=== PATIENT | female | born 1960 | race Caucasian/White ===

== ENCOUNTER → 2017-03-21 | Outpatient (CLI) | payer BC ==
--- NOTE | 2017-03-21 10:57 | RAD ---
DATE: 03/21/2017 EXAM: DIGITAL SCREEN BILAT W/CAD HISTORY: Routine screening COMPARISON: 10/28/2015 This study was interpreted with the benefit of Computerized Aided Detection (CAD). FINDINGS: Breast Density: HETERO The breast parenchyma Is heterogeneously dense, which could reduce sensitivity of mammography. Breast parenchyma level C. There are no dominant suspicious masses, suspicious microcalcifications or evidence of architectural distortion. Benign-appearing calcifications identified in the bilateral breasts. Nodules identified in the bilateral breast probably intramammary lymph nodes are similar to prior exam IMPRESSION: Benign findings BI-RADS CATEGORY: 2 BENIGN FINDING RECOMMENDED FOLLOW-UP: 12M 12 MONTH FOLLOW-UP PQRS compliance statement: Patient information was entered into a reminder system with a target due date 03/21/2018 for the next mammogram. Mammography is a sensitive method for finding small breast cancers, but it does not detect them all and is not a substitute for careful clinical examination. A negative mammogram does not negate a clinically suspicious finding and should not result in delay in biopsying a clinically suspicious abnormality. "Our facility is accredited by the [employer] Mammography [employer]."
== END | disposition home or self-care (01) ==
LOC: MAMMO 08:42
PROVIDERS: ATTEND Obstetrics & Gynecology
DX: Z12.31 Encounter for screening mammogram for malignant neoplasm of breast (principal)
CPT/HCPCS: G0202; 77067

== ENCOUNTER → 2018-05-23 | Outpatient (CLI) | payer BC | END | disposition home or self-care (01) | LOC: MAMMO 10:40 | DX: Z12.31 Encounter for screening mammogram for malignant neoplasm of breast (principal) | CPT/HCPCS: 77067 ==

== ENCOUNTER → 2019-07-30 | Outpatient (CLI) | payer BC ==
--- NOTE | 2019-07-31 15:44 | RAD ---
DATE: 07/30/2019 EXAM: DIGITAL SCREEN BILAT W/CAD HISTORY: Routine screening COMPARISON: 09/24/2014, 10/28/2015, 03/21/2017, 05/23/2018 mammographic exams This study was interpreted with the benefit of Computerized Aided Detection (CAD). Breast Density: SCATTERED The breast parenchyma shows scattered fibroglandular densities. Breast parenchyma level B. FINDINGS: Benign calcifications are present. No masses or distortion in the interval. IMPRESSION: Stable BI-RADS CATEGORY: 1 NEGATIVE RECOMMENDED FOLLOW-UP: 12M 12 MONTH FOLLOW-UP PQRS compliance statement: Patient information was entered into a reminder system with a target due date in one year for the next mammogram. Mammography is a sensitive method for finding small breast cancers, but it does not detect them all and is not a substitute for careful clinical examination. A negative mammogram does not negate a clinically suspicious finding and should not result in delay in biopsying a clinically suspicious abnormality. "Our facility is accredited by the [employer] Mammography [employer]."
== END | disposition home or self-care (01) ==
LOC: MAMMO 07:43
PROVIDERS: ATTEND Obstetrics & Gynecology
DX: Z12.31 Encounter for screening mammogram for malignant neoplasm of breast (principal); N64.89 Other specified disorders of breast
CPT/HCPCS: 77067

== ENCOUNTER 2020-12-05 14:09 | Inpatient (IN) | payer BC, OTHER ==
[~2020-12-05] VITALS: Ht 154.9 cm; Wt 122.5 kg
[2020-12-05] MEDS ORDERED: methylPREDNISolone SOD SUCC PF 125 MG/2 ML VIAL. IV ONE (15:00)
[2020-12-05 15:12] LABS: BASO % 0 % (0-3); EOS # 0.1 x10^3/uL (0.0-0.7); EOS % 1 % (0-3); HEMATOCRIT 40.4 % (36.0-47.0); HEMOGLOBIN 13.8 g/dL (12.0-15.5); LYMPH # 2.6 x10^3/uL (1.0-4.8); LYMPH % 26 % (24-48); MEAN CORPUSCULAR HEMOGLOBIN 31 pg (25-35); MEAN CORPUSCULAR HGB CONC 34 g/dL (31-37); MEAN CORPUSCULAR VOLUME 91 fL (79-100); MONO # 0.6 x10^3/uL (0.0-1.1); MONO % 6 % (0-9); NEUT # 6.7 x10^3/uL (1.8-7.7); NEUT % 67 % (31-73); PLATELET COUNT 184 x10^3/uL (140-400); RED BLOOD COUNT 4.46 x10^6/uL (3.50-5.40); RED CELL DISTRIBUTION WIDTH 13.6 % (11.5-14.5)
--- NOTE | 2020-12-05 15:19 | RAD ---
EXAM: Chest, single view. HISTORY: Shortness of air. COMPARISON: None. FINDINGS: A frontal view of the chest is obtained. There is no infiltrate, pleural effusion or pneumo thorax. The heart is normal in size. IMPRESSION: No acute pulmonary finding. Electronically signed by: Ronda Chaudhry MD (12/05/2020 3:16 PM) [facility]
--- NOTE | 2020-12-05 15:22 | PHYS DOC ---
Past Medical History Past Medical History: High Cholesterol, Hypertension Past Surgical History: Other Additional Past Surgical Histo: PARTIAL HYSTERECTOMY Smoking Status: Never Smoker Alcohol Use: None General Adult EDM: Chief Complaint: MULTIPLE COMPLAINTS HPI: HPI: Patient is a 60 year old female who presents with cough for last 2 weeks and went to her doctor and they put her on antibiotic and a steroid. She states that she has not gotten better and is only gotten worse. She states that shortness of air is gotten worse especially when she is up and moving. States she had a bout of diarrhea today. She states she did eat and drink today. She says she has had no diarrhea after eating and drinking today. Patient has a history of hypertension high cholesterol. Patient denies abdominal pain, nausea, vomiting, headache, dizziness, syncope, chest pain, fever, back pain, urinary symptoms, focal weakness, numbness or tingling. Upon arrival patient was only 89% on room air. She does not usually wear oxygen. She is placed on 2 L of oxygen she is 95%. Review of Systems: Review of Systems: Constitutional: Denies fever or chills. [] Eyes: Denies change in visual acuity. [] HENT: Denies nasal congestion or sore throat. [] Respiratory: +cough or +shortness of breath. [] Cardiovascular: Denies chest pain or edema. [] GI: Denies abdominal pain, nausea, vomiting, bloody stools. +diarrhea. [] : Denies dysuria. [] Musculoskeletal: Denies back pain or joint pain. [] Integument: Denies rash. [] Neurologic: Denies headache, focal weakness or sensory changes. [] Endocrine: Denies polyuria or polydipsia. [] Lymphatic: Denies swollen glands. [] Psychiatric: Denies depression or anxiety. [] Heart Score: Risk Factors: Risk Factors: DM, Current or recent (<one month) smoker, HTN, HLP, family history of CAD, obesity. Risk Scores: Score 0 - 3: 2.5% MACE over next 6 weeks - Discharge Home Score 4 - 6: 20.3% MACE over next 6 weeks - Admit for Clinical Observation Score 7 - 10: 72.7% MACE over next 6 weeks - Early Invasive Strategies Current Medications: Current Medications Medications (Trade) Dose Ordered Sig/Gurjit Start Time Stop Time Status Last Admin Dose Admin Methylprednisolone Sodium Succinate (SOLU-Medrol 125MG VIAL) 125 mg 1X ONCE 12/05/20 15:00 12/05/20 15:02 DC Allergies: Allergies: Allergies Coded Allergies Type Severity Reaction Last Updated Verified No Known Drug Allergies 12/05/20 No Physical Exam: PE: Constitutional: Well developed, well nourished, no acute distress, non-toxic appearance. [] HENT: Normocephalic, atraumatic, bilateral external ears normal, oropharynx moist, no oral exudates, nose normal. [] Eyes: PERRLA, EOMI, conjunctiva normal, no discharge. [] Neck: Normal range of motion, no tenderness, supple, no stridor. [] Cardiovascular:Heart rate regular rhythm, no murmur [] Lungs & Thorax: Bilateral upper breath sounds clear lower diminished to auscultation [] Abdomen: Bowel sounds normal, soft, no tenderness, no masses, no pulsatile masses. [] Skin: Warm, dry, no erythema, no rash. [] Back: No tenderness, no CVA tenderness. [] Extremities: No tenderness, no cyanosis, no clubbing, ROM intact, bilateral 2+ edema. [] Neurologic: Alert and oriented X 3, normal motor function, normal sensory function, no focal deficits noted. [] Psychologic: Affect normal, judgement normal, mood normal. [] Current Patient Data: Labs: Laboratory Tests Test 12/05/20 15:02 White Blood Count 10.0 x10^3/uL (4.0-11.0) Red Blood Count 4.46 x10^6/uL (3.50-5.40) Hemoglobin 13.8 g/dL (12.0-15.5) Hematocrit 40.4 % (36.0-47.0) Mean Corpuscular Volume 91 fL (79-100) Mean Corpuscular Hemoglobin 31 pg (25-35) Mean Corpuscular Hemoglobin Concent 34 g/dL (31-37) Red Cell Distribution Width 13.6 % (11.5-14.5) Platelet Count 184 x10^3/uL (140-400) Neutrophils (%) (Auto) 67 % (31-73) Lymphocytes (%) (Auto) 26 % (24-48) Monocytes (%) (Auto) 6 % (0-9) Eosinophils (%) (Auto) 1 % (0-3) Basophils (%) (Auto) 0 % (0-3) Neutrophils # (Auto) 6.7 x10^3/uL (1.8-7.7) Lymphocytes # (Auto) 2.6 x10^3/uL (1.0-4.8) Monocytes # (Auto) 0.6 x10^3/uL (0.0-1.1) Eosinophils # (Auto) 0.1 x10^3/uL (0.0-0.7) Basophils # (Auto) 0.0 x10^3/uL (0.0-0.2) Laboratory Tests 12/05/20 15:02 Vital Signs: Vital Signs Date Time Temp Pulse Resp B/P (MAP) Pulse Ox O2 Delivery O2 Flow Rate FiO2 12/05/20 14:42 98.0 96 20 154/77 (102) 95 Nasal Cannula 2.0 98.0 EKG: EK and read by Dr. Santoyo as sinus tachycardia and no STEMI. [] Radiology/Procedures: Radiology/Procedures: [] Impression: [address] [id number] IMAGING REPORT Signed PATIENT: VIKKI FRIAS SACCOUNT: [id number] : 1960 LOCATION: ER AGE: 60 SEX: F EXAM STATUS: REG ER ORD. PHYSICIAN: KALEY PICHARDO APRN REASON: SOA, LOW 02 PROCEDURE: PORTABLE CHEST 1V EXAM: Chest, single view. HISTORY: Shortness of air. COMPARISON: None. FINDINGS: A frontal view of the chest is obtained. There is no infiltrate, pleural effusion or pneumothorax. The heart is normal in size. IMPRESSION: No acute pulmonary finding. Electronically signed by: Ronda Alba MD (12/05/2020 3:16 PM) [facility] DICTATED and SIGNED BY: RONDA ALBA MD DATE: 12/05/20 [id number] [id number] IMAGING REPORT Signed PATIENT: VIKKI FRIAS SACCOUNT: [id number] : 1960 LOCATION: ER AGE: 60 SEX: F EXAM STATUS: REG ER ORD. PHYSICIAN: KALEY PICHARDO APRN REASON: SOA, TACHYCARDIA PROCEDURE: CT ANGIOGRAPHY CHEST EXAM: CT angiography of the chest with intravenous contrast. HISTORY: Tachycardia. Shortness of breath. TECHNIQUE: Computed tomographic images of the chest were obtained following the administration of intravenous contrast according to angiography protocol. Multiplanar reformatting was performed and three dimensional maximum intensity projection images were obtained. *One or more of the following individualized dose reduction techniques were utilized for this examination: 1. Automated exposure control. 2. Adjustment of the mA and/or kV according to patient size. 3. Use of iterative reconstruction technique. COMPARISON: None. FINDINGS: There are bilateral upper and and lower lobe and right middle lobe pulmonary emboli with involvement of the lateral main pulmonary arteries. No saddle embolus is seen. There is suggestion of deviation of the anterior ventricular septum, a finding which can be seen with right heart strain. The aorta is normal in caliber and demonstrates a standard aortic arch branching pattern. There is no lymphadenopathy. There is no pleural effusion or pneumothorax. There is nonspecific right perihilar groundglass opacity likely due to atelectasis. There is additional right infrahilar and posterior dependent atelectasis. There is mild stranding surrounding adrenal glands, not within limits to suggest infarction. No adrenal nodule is seen. There are right renal cysts, partially included on the [id number].. Is not routinely recommended for simple renal cysts. There are degenerative changes involving the spine. There is no acute or suspicious osseous finding. IMPRESSION: 1. Extensive bilateral pulmonary emboli with involvement of the main pulmonary arteries. There may be a component of superimposed right heart strain. No saddle embolus is seen. 2. Nonspecific right perihilar groundglass opacity which is likely due to atelectasis. No consolidated infiltrate is seen. Findings were discussed with Kaley in the ED at the 1726 hours on 11/08/2020. FOR INTERNAL CODING PURPOSES RESULT CODE: (C) Electronically signed by: Ronda Alba MD (12/05/2020 5:26 PM) [facility] DICTATED and SIGNED BY: RONDA ALBA MD DATE: 12/05/20 [id number] Course & Med Decision Making: Course & Med Decision Making Pertinent Labs and Imaging studies reviewed. (See chart for details) COVID-19 CRITERIA: The patient was evaluated during the global COVID-19 pandemic, and that diagnosis was suspected/considered upon their initial presentation. Their evaluation, treatment and testing was consistent with current guidelines for patients who present with complaints or symptoms that may be related to COVID-19. See HPI. Alert and oriented x4. Ambulatory with a steady gait. Skin pink warm and dry. She has 2+ peripheral edema bilaterally of which she states is normal for her. Lungs are clear in upper lobes and diminished in lower lobes. Speaks in full complete sentences. IMPRESSION: 1. Extensive bilateral pulmonary emboli with involvement of the main pulmonary arteries. There may be a component of superimposed right heart strain. No saddle embolus is seen. 2. Nonspecific right perihilar groundglass opacity which is likely due to atelectasis. No consolidated infiltrate is seen. Patient is started on heparin bolus and heparin drip. I have ordered a PT/INR. Patient is admitted to hospitalist. [] Karla Disclaimer: Karla Disclaimer: This electronic medical record was generated, in whole or in part, using a voice recognition dictation system. COVID-19 Patient Risks: Age 65 or older: No Sign of co-morbidity: Yes Exp to person + for COVID: No Exp to PUI: No Travel from affected area: No Lower respiratory symptoms: Yes Fever: No Other: No PPE Use: Full PPE with N95 mask or PAPR: Yes Departure Departure Impression: Primary Impression: Pulmonary embolism Qualified Codes: I26.99 - Other pulmonary embolism without acute cor pulmonale Additional Impressions: Person under investigation for COVID-19 Hypoxia Disposition: 09 ADMITTED INPT THIS HOSP Admitting Physician: LIZ Condition: STABLE Referrals: NOAH ANDREA MD (PCP) KALEY PICHARDO APRN Dec 05, 2020 15:22
[2020-12-05 15:37] LABS: CREATININE 0.8 mg/dL (0.6-1.0); GFR 72.9; POTASSIUM 3.6 mmol/L (3.5-5.1)
[2020-12-05 15:43] LABS: ALBUMIN 3.1 g/dL (3.4-5.0); ALBUMIN/GLOBULIN RATIO 0.8 (1.0-1.7); TOTAL BILIRUBIN 1.1 mg/dL (0.2-1.0); TOTAL PROTEIN 7.1 g/dL (6.4-8.2)
[2020-12-05 15:50] LABS: BASE EXCESS COOX -3 mmol/L (-3-3); HCO3 COOX 20 mmol/L (21-28); METHEMOGLOBIN 0.3 % (0.0-1.9); OXYHEMOGLOBIN 90.6 %; PCO2 COOX 30 mmHg (35-46); PO2 COOX 59 mmHg (65-108); SAT O2 COOX 91 % (92-99)
[2020-12-05 16:18] LABS: INFLUENZA A PATIENT NEGATIVE (NEGATIVE); INFLUENZA B PATIENT NEGATIVE (NEGATIVE)
[2020-12-05] MEDS ORDERED: IOHEXOL 350 MG/ML 100 ML VIAL. IV ONE (16:30)
[2020-12-05] MEDS ORDERED: CONTRAST GIVEN. MC PRN (16:45)
--- NOTE | 2020-12-05 17:31 | RAD ---
EXAM: CT angiography of the chest with intravenous contrast. HISTORY: Tachycardia. Shortness of breath. TECHNIQUE: Computed tomographic images of the chest were obtained following the administration of int ravenous contrast according to angiography protocol. Multiplanar reformatting was performed and three dimensional maximum intensity projection images were obtained. *One or more of the following individualized dose reduction techniques were utilized for this examina tion: 1. Automated exposure control. 2. Adjustment of the mA and/or kV according to patient size. 3. Use of iterative reconstruction technique. COMPARISON: None. FINDINGS: There are bilateral upper and and lower lobe and right middle lobe pulmonary emboli with in volvement of the lateral main pulmonary arteries. No saddle embolus is seen. There is suggestion of d eviation of the anterior ventricular septum, a finding which can be seen with right heart strain. The aorta is normal in caliber and demonstrates a standard aortic arch branching pattern. There is no ly mphadenopathy. There is no pleural effusion or pneumothorax. There is nonspecific right perihilar claire undglass opacity likely due to atelectasis. There is additional right infrahilar and posterior depend ent atelectasis. There is mild stranding surrounding adrenal glands, not within limits to suggest inf arction. No adrenal nodule is seen. There are right renal cysts, partially included on the field-of-v iew.. Is not routinely recommended for simple renal cysts. There are degenerative changes involving t he spine. There is no acute or suspicious osseous finding. IMPRESSION: 1. Extensive bilateral pulmonary emboli with involvement of the main pulmonary arteries. There may be a component of superimposed right heart strain. No saddle embolus is seen. 2. Nonspecific right perihilar groundglass opacity which is likely due to atelectasis. No consolidate d infiltrate is seen. Findings were discussed with Kaley in the ED at the 1726 hours on 11/08/2020. FOR INTERNAL CODING PURPOSES RESULT CODE: (C) Electronically signed by: Ronda Chaudhry MD (12/05/2020 5:26 PM) [facility]
[2020-12-05] MEDS ORDERED: AZITHRMYCN 500MG IVPB FOR OMNI 250 ML IV ONE (18:00)
[2020-12-05] MEDS ORDERED: HEPARIN for IV BOLUS 10,000 UNIT/10 ML VIAL. IV ONE (18:00)
[2020-12-05] MEDS ORDERED: ONDANSETRON PF 4 MG/2 ML VIAL. IV PRN (18:15)
[2020-12-05] MEDS ORDERED: ACETAMINOPHEN 325 MG TABLET. PO PRN (18:15)
[2020-12-05 18:24] LABS: PROTHROMBIN TIME PATIENT 13.9 SEC (11.7-14.0)
[2020-12-05] MEDS: HEPARIN 25,000UTS/250ML PREMIX 250 ML IV PRN (19:24)
[2020-12-05 19:26] LABS: BILIRUBIN,URINE NEGATIVE (NEG); CLARITY,URINE CLEAR; COLOR,URINE YELLOW; NITRITE,URINE NEGATIVE (NEG); PH,URINE 5.5 (<5.0-8.0); PROTEIN,URINE 30 mg/dL (NEG-TRACE); UROBILINOGEN,URINE 0.2 mg/dL (0.2 mg/dL)
--- NOTE | 2020-12-05 19:39 | HP ---
ADMIT DATE: 12/05/2020 CHIEF COMPLAINT: Shortness of breath, cough and loose stools. HISTORY OF PRESENT ILLNESS: The patient is a pleasant middle-aged female who presented today with the above chief complaints. We did some imaging here in the ER. It appears she has bilateral pulmonary emboli. We are concerned she possibly could have COVID as well. I discussed the case with the ER physician. We are going to admit the patient and anticoagulate her and consult Pulmonary Medicine. PAST MEDICAL HISTORY: Hypertension, hyperlipidemia, partial hysterectomy. ALLERGIES: None. FAMILY HISTORY: Diabetes. SOCIAL HISTORY: She does not drink, smoke or take drugs. MEDICATIONS: Reviewed, please refer to the MRAD. REVIEW OF SYSTEMS: GENERAL: No history of weight change, weakness or fevers. SKIN: No bruising, hair changes or rashes. EYES: No blurred, double or loss of vision. NOSE AND THROAT: No history of nosebleeds, hoarseness or sore throat. HEART: No history of palpitations, chest pain or shortness of breath on exertion. LUNGS: She complains of shortness of breath and cough. GASTROINTESTINAL: Denies changes in appetite, nausea, vomiting, diarrhea or constipation. GENITOURINARY: No history of frequency, urgency, hesitancy or nocturia. NEUROLOGIC: Denies history of numbness, tingling, tremor or weakness. PSYCHIATRIC: No history of panic, anxiety or depression. ENDOCRINE: No history of heat or cold intolerance, polyuria or polydipsia. EXTREMITIES: Denies muscle weakness, joint pain, pain on walking or stiffness. PHYSICAL EXAMINATION: VITALS: Within normal limits and are stable. GENERAL: No apparent distress. Alert and oriented. HEENT: Normal cephalic atraumatic, external auditory canals are patent. EYES: Extraocular muscles are intact, pupils are equally round and reactive to light and accommodation. MUSCULOSKELETAL: Well developed, well nourished, good range of motion. ENDOCRINE: No thyromegaly was palpated. LYMPHATICS: No cervical chain or axillary nodes were noted. HEMATOPOIETIC: No bruising. NECK: Supple, no JVD, no thyromegaly was noted. LUNGS: Clear to auscultation in all lung cuevas without rhonchi or wheezing. HEART: RRR, S1, S2 present. Peripheral pulses intact, no obvious murmurs were noted. ABDOMEN: Soft, nontender. Positive bowel sounds no organomegaly, normal bowel sounds. EXTREMITIES: Without any cyanosis, clubbing, or edema. Pedal pulses intact, Homans sign is negative. NEUROLOGIC: Normal speech, normal tone. A & O x 3, moves all extremities, no obvious focal deficits. PSYCHIATRIC: Normal affect, normal mood. Stable. SKIN: No ulcerations or rashes, good skin turgor, no jaundice. VASCULAR: Good capillary refill, neurovascular bundle appears to be intact. LABORATORY DATA: White count 10. Electrolytes are normal other than a BUN of 27 and a glucose of 171. ABG: pH 7.44, pCO2 of 30, pO2 of 59, bicarbonate 20 with 91% sat, that was on 2 liters nasal cannula. Influenza testing is negative. D-dimer is high at 2.34. ASSESSMENT AND PLAN: Bilateral pulmonary emboli. The patient has been admitted. We will start anticoagulation. Consult Pulmonary Medicine. Heparin drip. Home meds, DVT prophylaxis. Full code. Rule out COVID-19. She did get a dose of azithromycin and Solu-Medrol in the ER. CC TIME: 32 minutes. AMANDEEP CARREON DO DR: LUPIS/dg JOB#: [id number] / [id number]
[2020-12-05 19:43] LABS: RBC,URINE 0 /HPF (0-2)
[2020-12-05 19:44] LABS: BACTERIA,URINE FEW /HPF (0-FEW)
[2020-12-05 20:47] VITALS: BP 143/85
[2020-12-05] MEDS ORDERED: LISI10TA16 PO (20:51)
[2020-12-05] MEDS ORDERED: ATOR20TA58 PO (20:51)
[2020-12-05] MEDS: ATORVASTATIN CALCIUM 20 MG TABLET PO SCH (22:01)
[2020-12-05] MEDS: LISINOPRIL 10 MG TABLET PO SCH (22:01)
[2020-12-05 23:19] VITALS: BP 184/96
[2020-12-06 03:10] VITALS: BP 144/79
--- NOTE | 2020-12-06 04:04 | EKG ---
[facility] [address] [place] [address] Test Date: 2020-12-05 Test Time: 14:29:13 Pat Name: VIKKI FRIAS Department: Room: [facility] Gender: F [employer] Supervisor: : 1960 Requested By: JASIEL PICHARDO Order Number: [id number] Reading MD: Toro Medellin Measurements Intervals [place] Rate: 101 P: 82 CA: 142 QRS: 29 QRSD: 86 T: 47 QT: 324 QTc: 426 Interpretive Statements SINUS TACHYCARDIA Electronically Signed On 12-15-2020 14:42:33 EXTERMINATOR HELPER by Toro Medellin
[2020-12-06] MEDS: HEPARIN 25,000UTS/250ML PREMIX 250 ML IV PRN (06:25)
--- NOTE | 2020-12-06 06:32 | NUR ---
Timed UFH ordered for 3am was drawn at 3:45. I called lab an hour later after no result. they said it waqs in process. At 0600 lab called stating that the tube was not full so the result is not accurate. They will re-draw now.
[2020-12-06 07:00] VITALS: BP 157/86
--- NOTE | 2020-12-06 10:44 | PDOC ---
PROGRESS NOTES Date of Service: DATE: 12/06/20 TIME: 10:44 Chief Complaint Chief Complaint ASSESSMENT AND PLAN: Bilateral pulmonary emboli. MORBID OBESITY PLAN admitted. start anticoagulation. Consult Pulmonary Medicine. Heparin drip. PROTOCOL Home meds, DVT prophylaxis. Full code. Rule out COVID-19. azithromycin and Solu-Medrol in the ER. Continue current IV heparin, switch to oral Eliquis in the a.m. Possibly discharge home tomorrow afternoon. d/w rn History of Present Illness History of Present Illness CHIEF COMPLAINT: Shortness of breath, cough and loose stools. HISTORY OF PRESENT ILLNESS: The patient is a pleasant middle-aged female who presented today with the above chief complaints. We did some imaging here in the ER. It appears she has bilateral pulmonary emboli. We are concerned she possibly could have COVID as well. I discussed the case with the ER physician. We are going to admit the patient and anticoagulate her and consult Pulmonary Medicine. PAST MEDICAL HISTORY: Hypertension, hyperlipidemia, partial hysterectomy. ALLERGIES: None. FAMILY HISTORY: Diabetes. SOCIAL HISTORY: She does not drink, smoke or take drugs. MEDICATIONS: Reviewed, please refer to the MRAD. REVIEW OF SYSTEMS: GENERAL: No history of weight change, weakness or fevers. SKIN: No bruising, hair changes or rashes. EYES: No blurred, double or loss of vision. NOSE AND THROAT: No history of nosebleeds, hoarseness or sore throat. HEART: No history of palpitations, chest pain or shortness of breath on exertion. LUNGS: She complains of shortness of breath and cough. GASTROINTESTINAL: Denies changes in appetite, nausea, vomiting, diarrhea or constipation. GENITOURINARY: No history of frequency, urgency, hesitancy or nocturia. NEUROLOGIC: Denies history of numbness, tingling, tremor or weakness. PSYCHIATRIC: No history of panic, anxiety or depression. ENDOCRINE: No history of heat or cold intolerance, polyuria or polydipsia. EXTREMITIES: Denies muscle weakness, joint pain, pain on walking or stiffness. Vitals Vitals Vital Signs Date Time Temp Pulse Resp B/P (MAP) Pulse Ox O2 Delivery O2 Flow Rate FiO2 12/06/20 07:54 Nasal Cannula 3.0 12/06/20 07:00 97.0 80 24 157/86 (109) 90 97.0 Physical Exam Physical Exam VITALS: Within normal limits and are stable. GENERAL: No apparent distress. Alert and oriented. HEENT: Normal cephalic atraumatic, external auditory canals are patent. EYES: Extraocular muscles are intact, pupils are equally round and reactive to light and accommodation. MUSCULOSKELETAL: Well developed, well nourished, good range of motion. ENDOCRINE: No thyromegaly was palpated. LYMPHATICS: No cervical chain or axillary nodes were noted. HEMATOPOIETIC: No bruising. NECK: Supple, no JVD, no thyromegaly was noted. LUNGS: Clear to auscultation in all lung cuevas without rhonchi or wheezing. HEART: RRR, S1, S2 present. Peripheral pulses intact, no obvious murmurs were noted. ABDOMEN: Soft, nontender. Positive bowel sounds no organomegaly, normal bowel sounds. EXTREMITIES: Without any cyanosis, clubbing, or edema. Pedal pulses intact, Homans sign is negative. NEUROLOGIC: Normal speech, normal tone. A & O x 3, moves all extremities, no obvious focal deficits. PSYCHIATRIC: Normal affect, normal mood. Stable. SKIN: No ulcerations or rashes, good skin turgor, no jaundice. VASCULAR: Good capillary refill, neurovascular bundle appears to be intact. General: Alert, Cooperative, No acute distress Labs LABS Laboratory Tests Test 12/05/20 15:02 12/05/20 15:51 12/05/20 15:55 12/05/20 19:19 White Blood Count 10.0 x10^3/uL (4.0-11.0) Red Blood Count 4.46 x10^6/uL (3.50-5.40) Hemoglobin 13.8 g/dL (12.0-15.5) Hematocrit 40.4 % (36.0-47.0) Mean Corpuscular Volume 91 fL (79-100) Mean Corpuscular Hemoglobin 31 pg (25-35) Mean Corpuscular Hemoglobin Concent 34 g/dL (31-37) Red Cell Distribution Width 13.6 % (11.5-14.5) Platelet Count 184 x10^3/uL (140-400) Neutrophils (%) (Auto) 67 % (31-73) Lymphocytes (%) (Auto) 26 % (24-48) Monocytes (%) (Auto) 6 % (0-9) Eosinophils (%) (Auto) 1 % (0-3) Basophils (%) (Auto) 0 % (0-3) Neutrophils # (Auto) 6.7 x10^3/uL (1.8-7.7) Lymphocytes # (Auto) 2.6 x10^3/uL (1.0-4.8) Monocytes # (Auto) 0.6 x10^3/uL (0.0-1.1) Eosinophils # (Auto) 0.1 x10^3/uL (0.0-0.7) Basophils # (Auto) 0.0 x10^3/uL (0.0-0.2) Prothrombin Time 13.9 SEC (11.7-14.0) Prothromb Time International Ratio 1.1 (0.8-1.1) D-Dimer (Roseline) 2.34 ug/mlFEU (0.00-0.50) Sodium Level 142 mmol/L (136-145) Potassium Level 3.6 mmol/L (3.5-5.1) Chloride Level 107 mmol/L (98-107) Carbon Dioxide Level 21 mmol/L (21-32) Anion Gap 14 (6-14) Blood Urea Nitrogen 27 mg/dL (7-20) Creatinine 0.8 mg/dL (0.6-1.0) Estimated GFR (Cockcroft-Gault) 72.9 BUN/Creatinine Ratio 34 (6-20) Glucose Level 171 mg/dL (70-99) Calcium Level 9.0 mg/dL (8.5-10.1) Total Bilirubin 1.1 mg/dL (0.2-1.0) Aspartate Amino Transf (AST/SGOT) 41 U/L (15-37) Alanine Aminotransferase (ALT/SGPT) 70 U/L (14-59) Alkaline Phosphatase 118 U/L (46-116) Troponin I Quantitative 0.025 ng/mL (0.000-0.055) KM-Fvc-J-Type Natriuretic Peptide 2897 pg/mL (0-124) Total Protein 7.1 g/dL (6.4-8.2) Albumin 3.1 g/dL (3.4-5.0) Albumin/Globulin Ratio 0.8 (1.0-1.7) Lipase 132 U/L (73-393) O2 Saturation 91 % (92-99) Arterial Blood pH 7.44 (7.35-7.45) Arterial Blood pCO2 at Patient Temp 30 mmHg (35-46) Arterial Blood pO2 at Patient Temp 59 mmHg (65-108) Arterial Blood HCO3 20 mmol/L (21-28) Arterial Blood Base Excess -3 mmol/L (-3-3) Oxyhemoglobin 90.6 % Methemoglobin 0.3 % (0.0-1.9) Carbon Monoxide, Quantitative 0.3 % (0.0-1.9) FiO2 28/ 2l nc Influenza Type A Antigen Negative (NEGATIVE) Influenza Type B Antigen Negative (NEGATIVE) Urine Collection Type Unknown Urine Color Yellow Urine Clarity Clear Urine pH 5.5 (<5.0-8.0) Urine Specific [place] >=1.030 (1.000-1.030) Urine Protein 30 mg/dL (NEG-TRACE) Urine Glucose (UA) Negative mg/dL (NEG) Urine Ketones (Stick) Trace mg/dL (NEG) Urine Blood Trace (NEG) Urine Nitrite Negative (NEG) Urine Bilirubin Negative (NEG) Urine Urobilinogen Dipstick 0.2 mg/dL (0.2 mg/dL) Urine Leukocyte Esterase Trace (NEG) Urine RBC 0 /HPF (0-2) Urine WBC 5-10 /HPF (0-4) Urine Squamous Epithelial Cells Mod /LPF Urine Bacteria Few /HPF (0-FEW) Urine Mucus Slight /LPF Assessment and Plan Assessmemt and Plan Problems Medical Problems: (1) Hypoxia Status: Acute (2) Person under investigation for COVID-19 Status: Acute (3) Pulmonary embolism Status: Acute Comment Review of Relevant I have reviewed the following items melodie (where applicable) has been applied. Labs Laboratory Tests Test 12/05/20 15:02 12/05/20 15:51 12/05/20 15:55 12/05/20 19:19 White Blood Count 10.0 x10^3/uL (4.0-11.0) Red Blood Count 4.46 x10^6/uL (3.50-5.40) Hemoglobin 13.8 g/dL (12.0-15.5) Hematocrit 40.4 % (36.0-47.0) Mean Corpuscular Volume 91 fL (79-100) Mean Corpuscular Hemoglobin 31 pg (25-35) Mean Corpuscular Hemoglobin Concent 34 g/dL (31-37) Red Cell Distribution Width 13.6 % (11.5-14.5) Platelet Count 184 x10^3/uL (140-400) Neutrophils (%) (Auto) 67 % (31-73) Lymphocytes (%) (Auto) 26 % (24-48) Monocytes (%) (Auto) 6 % (0-9) Eosinophils (%) (Auto) 1 % (0-3) Basophils (%) (Auto) 0 % (0-3) Neutrophils # (Auto) 6.7 x10^3/uL (1.8-7.7) Lymphocytes # (Auto) 2.6 x10^3/uL (1.0-4.8) Monocytes # (Auto) 0.6 x10^3/uL (0.0-1.1) Eosinophils # (Auto) 0.1 x10^3/uL (0.0-0.7) Basophils # (Auto) 0.0 x10^3/uL (0.0-0.2) Prothrombin Time 13.9 SEC (11.7-14.0) Prothromb Time International Ratio 1.1 (0.8-1.1) D-Dimer (Roseline) 2.34 ug/mlFEU (0.00-0.50) Sodium Level 142 mmol/L (136-145) Potassium Level 3.6 mmol/L (3.5-5.1) Chloride Level 107 mmol/L (98-107) Carbon Dioxide Level 21 mmol/L (21-32) Anion Gap 14 (6-14) Blood Urea Nitrogen 27 mg/dL (7-20) Creatinine 0.8 mg/dL (0.6-1.0) Estimated GFR (Cockcroft-Gault) 72.9 BUN/Creatinine Ratio 34 (6-20) Glucose Level 171 mg/dL (70-99) Calcium Level 9.0 mg/dL (8.5-10.1) Total Bilirubin 1.1 mg/dL (0.2-1.0) Aspartate Amino Transf (AST/SGOT) 41 U/L (15-37) Alanine Aminotransferase (ALT/SGPT) 70 U/L (14-59) Alkaline Phosphatase 118 U/L (46-116) Troponin I Quantitative 0.025 ng/mL (0.000-0.055) YU-Ssg-H-Type Natriuretic Peptide 2897 pg/mL (0-124) Total Protein 7.1 g/dL (6.4-8.2) Albumin 3.1 g/dL (3.4-5.0) Albumin/Globulin Ratio 0.8 (1.0-1.7) Lipase 132 U/L (73-393) O2 Saturation 91 % (92-99) Arterial Blood pH 7.44 (7.35-7.45) Arterial Blood pCO2 at Patient Temp 30 mmHg (35-46) Arterial Blood pO2 at Patient Temp 59 mmHg (65-108) Arterial Blood HCO3 20 mmol/L (21-28) Arterial Blood Base Excess -3 mmol/L (-3-3) Oxyhemoglobin 90.6 % Methemoglobin 0.3 % (0.0-1.9) Carbon Monoxide, Quantitative 0.3 % (0.0-1.9) FiO2 28/ 2l nc Influenza Type A Antigen Negative (NEGATIVE) Influenza Type B Antigen Negative (NEGATIVE) Urine Collection Type Unknown Urine Color Yellow Urine Clarity Clear Urine pH 5.5 (<5.0-8.0) Urine Specific [place] >=1.030 (1.000-1.030) Urine Protein 30 mg/dL (NEG-TRACE) Urine Glucose (UA) Negative mg/dL (NEG) Urine Ketones (Stick) Trace mg/dL (NEG) Urine Blood Trace (NEG) Urine Nitrite Negative (NEG) Urine Bilirubin Negative (NEG) Urine Urobilinogen Dipstick 0.2 mg/dL (0.2 mg/dL) Urine Leukocyte Esterase Trace (NEG) Urine RBC 0 /HPF (0-2) Urine WBC 5-10 /HPF (0-4) Urine Squamous Epithelial Cells Mod /LPF Urine Bacteria Few /HPF (0-FEW) Urine Mucus Slight /LPF Laboratory Tests Test 12/05/20 15:02 12/05/20 15:51 12/05/20 15:55 12/05/20 19:19 White Blood Count 10.0 x10^3/uL (4.0-11.0) Red Blood Count 4.46 x10^6/uL (3.50-5.40) Hemoglobin 13.8 g/dL (12.0-15.5) Hematocrit 40.4 % (36.0-47.0) Mean Corpuscular Volume 91 fL (79-100) Mean Corpuscular Hemoglobin 31 pg (25-35) Mean Corpuscular Hemoglobin Concent 34 g/dL (31-37) Red Cell Distribution Width 13.6 % (11.5-14.5) Platelet Count 184 x10^3/uL (140-400) Neutrophils (%) (Auto) 67 % (31-73) Lymphocytes (%) (Auto) 26 % (24-48) Monocytes (%) (Auto) 6 % (0-9) Eosinophils (%) (Auto) 1 % (0-3) Basophils (%) (Auto) 0 % (0-3) Neutrophils # (Auto) 6.7 x10^3/uL (1.8-7.7) Lymphocytes # (Auto) 2.6 x10^3/uL (1.0-4.8) Monocytes # (Auto) 0.6 x10^3/uL (0.0-1.1) Eosinophils # (Auto) 0.1 x10^3/uL (0.0-0.7) Basophils # (Auto) 0.0 x10^3/uL (0.0-0.2) Prothrombin Time 13.9 SEC (11.7-14.0) Prothromb Time International Ratio 1.1 (0.8-1.1) D-Dimer (Roseline) 2.34 ug/mlFEU (0.00-0.50) Sodium Level 142 mmol/L (136-145) Potassium Level 3.6 mmol/L (3.5-5.1) Chloride Level 107 mmol/L (98-107) Carbon Dioxide Level 21 mmol/L (21-32) Anion Gap 14 (6-14) Blood Urea Nitrogen 27 mg/dL (7-20) Creatinine 0.8 mg/dL (0.6-1.0) Estimated GFR (Cockcroft-Gault) 72.9 BUN/Creatinine Ratio 34 (6-20) Glucose Level 171 mg/dL (70-99) Calcium Level 9.0 mg/dL (8.5-10.1) Total Bilirubin 1.1 mg/dL (0.2-1.0) Aspartate Amino Transf (AST/SGOT) 41 U/L (15-37) Alanine Aminotransferase (ALT/SGPT) 70 U/L (14-59) Alkaline Phosphatase 118 U/L (46-116) Troponin I Quantitative 0.025 ng/mL (0.000-0.055) CG-Tai-X-Type Natriuretic Peptide 2897 pg/mL (0-124) Total Protein 7.1 g/dL (6.4-8.2) Albumin 3.1 g/dL (3.4-5.0) Albumin/Globulin Ratio 0.8 (1.0-1.7) Lipase 132 U/L (73-393) O2 Saturation 91 % (92-99) Arterial Blood pH 7.44 (7.35-7.45) Arterial Blood pCO2 at Patient Temp 30 mmHg (35-46) Arterial Blood pO2 at Patient Temp 59 mmHg (65-108) Arterial Blood HCO3 20 mmol/L (21-28) Arterial Blood Base Excess -3 mmol/L (-3-3) Oxyhemoglobin 90.6 % Methemoglobin 0.3 % (0.0-1.9) Carbon Monoxide, Quantitative 0.3 % (0.0-1.9) FiO2 28/ 2l nc Influenza Type A Antigen Negative (NEGATIVE) Influenza Type B Antigen Negative (NEGATIVE) Urine Collection Type Unknown Urine Color Yellow Urine Clarity Clear Urine pH 5.5 (<5.0-8.0) Urine Specific [place] >=1.030 (1.000-1.030) Urine Protein 30 mg/dL (NEG-TRACE) Urine Glucose (UA) Negative mg/dL (NEG) Urine Ketones (Stick) Trace mg/dL (NEG) Urine Blood Trace (NEG) Urine Nitrite Negative (NEG) Urine Bilirubin Negative (NEG) Urine Urobilinogen Dipstick 0.2 mg/dL (0.2 mg/dL) Urine Leukocyte Esterase Trace (NEG) Urine RBC 0 /HPF (0-2) Urine WBC 5-10 /HPF (0-4) Urine Squamous Epithelial Cells Mod /LPF Urine Bacteria Few /HPF (0-FEW) Urine Mucus Slight /LPF Medications Current Medications Methylprednisolone Sodium Succinate (SOLU-Medrol 125MG VIAL) 125 mg 1X ONCE IV Last administered on 12/05/20at 15:53; Start 12/05/20 at 15:00; Stop 12/05/20 at 15:02; Status DC Iohexol (Omnipaque 350 Mg/ml) 100 ml 1X ONCE IV Last administered on 12/05/20at 16:59; Start 12/05/20 at 16:30; Stop 12/05/20 at 16:31; Status DC Info (CONTRAST GIVEN -- Rx MONITORING) 1 each PRN DAILY PRN MC SEE COMMENTS; Start 12/05/20 at 16:45; Stop 12/07/20 at 16:44 Azithromycin 250 ml @ 250 mls/hr 1X ONCE IV Last administered on 12/05/20at 19:21; Start 12/05/20 at 18:00; Stop 12/05/20 at 18:59; Status DC Heparin Sodium (Porcine) (Heparin Sodium) 9,900 unit 1X ONCE IV Last administered on 12/05/20at 19:20; Start 12/05/20 at 18:00; Stop 12/05/20 at 18:01; Status DC Heparin Sodium/ Dextrose 250 ml @ 19.776 mls/ hr CONT PRN IV PER PROTOCOL Last administered on 12/06/20at 06:25; Start 12/05/20 at 17:45 Ondansetron HCl (Zofran) 4 mg PRN Q8HRS PRN IV NAUSEA/VOMITING; Start 12/05/20 at 18:15; Stop 12/06/20 at 18:14 Acetaminophen (Tylenol) 650 mg PRN Q4HRS PRN PO FEVER > 100.3'F; Start 12/05/20 at 18:15; Stop 12/06/20 at 18:14 Atorvastatin Calcium (Lipitor) 20 mg QHS PO Last administered on 12/05/20at 22:01; Start 12/05/20 at 22:00 Lisinopril (Prinivil) 10 mg HS PO Last administered on 12/05/20at 22:01; Start 12/05/20 at 22:00 Active Scripts Active Reported Atorvastatin Calcium 20 Mg Tablet 1 Tab PO DAILY Lisinopril 10 Mg Tablet 1 Tab PO HS Vitals/I & O Vital Sign - Last 24 Hours 12/05/20 12/05/20 12/05/20 12/05/20 14:42 15:25 15:30 16:00 Temp 98.0 98.0 Pulse 96 84 84 Resp 20 B/P (MAP) 154/77 (102) 136/82 (100) 128/86 (100) Pulse Ox 95 94 93 93 O2 Delivery Nasal Cannula Nasal Cannula Room Air Room Air O2 Flow Rate 2.0 2.0 12/05/20 12/05/20 12/05/20 12/05/20 16:30 17:00 17:30 18:00 Pulse 80 90 88 88 B/P (MAP) 141/83 (102) Pulse Ox 93 93 92 92 O2 Delivery Room Air Nasal Cannula Nasal Cannula Nasal Cannula O2 Flow Rate 2.0 2.0 2.0 12/05/20 12/05/20 12/05/20 12/05/20 18:50 19:20 19:50 20:47 Temp 98.5 98.5 Pulse 92 94 88 87 Resp 16 B/P (MAP) 144/92 (109) 148/94 (112) 139/84 (102) 143/85 (104) Pulse Ox 92 92 92 92 O2 Delivery Nasal Cannula Nasal Cannula Nasal Cannula Nasal Cannula O2 Flow Rate 2.0 2.0 2.0 2.0 12/05/20 12/05/20 12/05/20 12/06/20 21:00 22:01 23:19 03:10 Temp 97.5 96.9 97.5 96.9 Pulse 87 97 83 Resp 18 20 B/P (MAP) 143/85 184/96 (125) 144/79 (100) Pulse Ox 93 92 O2 Delivery Nasal Cannula Nasal Cannula Nasal Cannula O2 Flow Rate 2.0 2.0 2.0 12/06/20 12/06/20 07:00 07:54 Temp 97.0 97.0 Pulse 80 Resp 24 B/P (MAP) 157/86 (109) Pulse Ox 90 O2 Delivery Nasal Cannula Nasal Cannula O2 Flow Rate 2.0 3.0 Intake and Output 12/05/20 12/05/20 12/06/20 15:00 23:00 07:00 Intake Total 300 ml 480 ml Output Total 300 ml 200 ml Balance 0 ml 280 ml Justicifation of Admission Dx: Justifications for Admission: Justification of Admission Dx: No Comments: acute pulmonary embolus MARCELO BARONE MD Dec 06, 2020 10:44
[2020-12-06 11:06] VITALS: BP 143/93
--- NOTE | 2020-12-06 11:33 | PDOC ---
PULMONARY PROGRESS NOTES DATE: 12/06/20 TIME: 11:32 Vitals Vital Signs Date Time Temp Pulse Resp B/P (MAP) Pulse Ox O2 Delivery O2 Flow Rate FiO2 12/06/20 11:06 96.9 81 24 143/93 (110) 92 Nasal Cannula 2.0 96.9 Labs Laboratory Tests Test 12/05/20 15:02 12/05/20 15:51 12/05/20 15:55 12/05/20 19:19 White Blood Count 10.0 x10^3/uL (4.0-11.0) Red Blood Count 4.46 x10^6/uL (3.50-5.40) Hemoglobin 13.8 g/dL (12.0-15.5) Hematocrit 40.4 % (36.0-47.0) Mean Corpuscular Volume 91 fL (79-100) Mean Corpuscular Hemoglobin 31 pg (25-35) Mean Corpuscular Hemoglobin Concent 34 g/dL (31-37) Red Cell Distribution Width 13.6 % (11.5-14.5) Platelet Count 184 x10^3/uL (140-400) Neutrophils (%) (Auto) 67 % (31-73) Lymphocytes (%) (Auto) 26 % (24-48) Monocytes (%) (Auto) 6 % (0-9) Eosinophils (%) (Auto) 1 % (0-3) Basophils (%) (Auto) 0 % (0-3) Neutrophils # (Auto) 6.7 x10^3/uL (1.8-7.7) Lymphocytes # (Auto) 2.6 x10^3/uL (1.0-4.8) Monocytes # (Auto) 0.6 x10^3/uL (0.0-1.1) Eosinophils # (Auto) 0.1 x10^3/uL (0.0-0.7) Basophils # (Auto) 0.0 x10^3/uL (0.0-0.2) Prothrombin Time 13.9 SEC (11.7-14.0) Prothromb Time International Ratio 1.1 (0.8-1.1) D-Dimer (Roseline) 2.34 ug/mlFEU (0.00-0.50) Sodium Level 142 mmol/L (136-145) Potassium Level 3.6 mmol/L (3.5-5.1) Chloride Level 107 mmol/L (98-107) Carbon Dioxide Level 21 mmol/L (21-32) Anion Gap 14 (6-14) Blood Urea Nitrogen 27 mg/dL (7-20) Creatinine 0.8 mg/dL (0.6-1.0) Estimated GFR (Cockcroft-Gault) 72.9 BUN/Creatinine Ratio 34 (6-20) Glucose Level 171 mg/dL (70-99) Calcium Level 9.0 mg/dL (8.5-10.1) Total Bilirubin 1.1 mg/dL (0.2-1.0) Aspartate Amino Transf (AST/SGOT) 41 U/L (15-37) Alanine Aminotransferase (ALT/SGPT) 70 U/L (14-59) Alkaline Phosphatase 118 U/L (46-116) Troponin I Quantitative 0.025 ng/mL (0.000-0.055) HY-Qea-A-Type Natriuretic Peptide 2897 pg/mL (0-124) Total Protein 7.1 g/dL (6.4-8.2) Albumin 3.1 g/dL (3.4-5.0) Albumin/Globulin Ratio 0.8 (1.0-1.7) Lipase 132 U/L (73-393) O2 Saturation 91 % (92-99) Arterial Blood pH 7.44 (7.35-7.45) Arterial Blood pCO2 at Patient Temp 30 mmHg (35-46) Arterial Blood pO2 at Patient Temp 59 mmHg (65-108) Arterial Blood HCO3 20 mmol/L (21-28) Arterial Blood Base Excess -3 mmol/L (-3-3) Oxyhemoglobin 90.6 % Methemoglobin 0.3 % (0.0-1.9) Carbon Monoxide, Quantitative 0.3 % (0.0-1.9) FiO2 28/ 2l nc Influenza Type A Antigen Negative (NEGATIVE) Influenza Type B Antigen Negative (NEGATIVE) Urine Collection Type Unknown Urine Color Yellow Urine Clarity Clear Urine pH 5.5 (<5.0-8.0) Urine Specific [place] >=1.030 (1.000-1.030) Urine Protein 30 mg/dL (NEG-TRACE) Urine Glucose (UA) Negative mg/dL (NEG) Urine Ketones (Stick) Trace mg/dL (NEG) Urine Blood Trace (NEG) Urine Nitrite Negative (NEG) Urine Bilirubin Negative (NEG) Urine Urobilinogen Dipstick 0.2 mg/dL (0.2 mg/dL) Urine Leukocyte Esterase Trace (NEG) Urine RBC 0 /HPF (0-2) Urine WBC 5-10 /HPF (0-4) Urine Squamous Epithelial Cells Mod /LPF Urine Bacteria Few /HPF (0-FEW) Urine Mucus Slight /LPF Laboratory Tests Test 12/05/20 15:02 12/05/20 15:51 12/05/20 15:55 12/05/20 19:19 White Blood Count 10.0 x10^3/uL (4.0-11.0) Red Blood Count 4.46 x10^6/uL (3.50-5.40) Hemoglobin 13.8 g/dL (12.0-15.5) Hematocrit 40.4 % (36.0-47.0) Mean Corpuscular Volume 91 fL (79-100) Mean Corpuscular Hemoglobin 31 pg (25-35) Mean Corpuscular Hemoglobin Concent 34 g/dL (31-37) Red Cell Distribution Width 13.6 % (11.5-14.5) Platelet Count 184 x10^3/uL (140-400) Neutrophils (%) (Auto) 67 % (31-73) Lymphocytes (%) (Auto) 26 % (24-48) Monocytes (%) (Auto) 6 % (0-9) Eosinophils (%) (Auto) 1 % (0-3) Basophils (%) (Auto) 0 % (0-3) Neutrophils # (Auto) 6.7 x10^3/uL (1.8-7.7) Lymphocytes # (Auto) 2.6 x10^3/uL (1.0-4.8) Monocytes # (Auto) 0.6 x10^3/uL (0.0-1.1) Eosinophils # (Auto) 0.1 x10^3/uL (0.0-0.7) Basophils # (Auto) 0.0 x10^3/uL (0.0-0.2) Prothrombin Time 13.9 SEC (11.7-14.0) Prothromb Time International Ratio 1.1 (0.8-1.1) D-Dimer (Roseline) 2.34 ug/mlFEU (0.00-0.50) Sodium Level 142 mmol/L (136-145) Potassium Level 3.6 mmol/L (3.5-5.1) Chloride Level 107 mmol/L (98-107) Carbon Dioxide Level 21 mmol/L (21-32) Anion Gap 14 (6-14) Blood Urea Nitrogen 27 mg/dL (7-20) Creatinine 0.8 mg/dL (0.6-1.0) Estimated GFR (Cockcroft-Gault) 72.9 BUN/Creatinine Ratio 34 (6-20) Glucose Level 171 mg/dL (70-99) Calcium Level 9.0 mg/dL (8.5-10.1) Total Bilirubin 1.1 mg/dL (0.2-1.0) Aspartate Amino Transf (AST/SGOT) 41 U/L (15-37) Alanine Aminotransferase (ALT/SGPT) 70 U/L (14-59) Alkaline Phosphatase 118 U/L (46-116) Troponin I Quantitative 0.025 ng/mL (0.000-0.055) PD-Wkw-P-Type Natriuretic Peptide 2897 pg/mL (0-124) Total Protein 7.1 g/dL (6.4-8.2) Albumin 3.1 g/dL (3.4-5.0) Albumin/Globulin Ratio 0.8 (1.0-1.7) Lipase 132 U/L (73-393) O2 Saturation 91 % (92-99) Arterial Blood pH 7.44 (7.35-7.45) Arterial Blood pCO2 at Patient Temp 30 mmHg (35-46) Arterial Blood pO2 at Patient Temp 59 mmHg (65-108) Arterial Blood HCO3 20 mmol/L (21-28) Arterial Blood Base Excess -3 mmol/L (-3-3) Oxyhemoglobin 90.6 % Methemoglobin 0.3 % (0.0-1.9) Carbon Monoxide, Quantitative 0.3 % (0.0-1.9) FiO2 28/ 2l nc Influenza Type A Antigen Negative (NEGATIVE) Influenza Type B Antigen Negative (NEGATIVE) Urine Collection Type Unknown Urine Color Yellow Urine Clarity Clear Urine pH 5.5 (<5.0-8.0) Urine Specific [place] >=1.030 (1.000-1.030) Urine Protein 30 mg/dL (NEG-TRACE) Urine Glucose (UA) Negative mg/dL (NEG) Urine Ketones (Stick) Trace mg/dL (NEG) Urine Blood Trace (NEG) Urine Nitrite Negative (NEG) Urine Bilirubin Negative (NEG) Urine Urobilinogen Dipstick 0.2 mg/dL (0.2 mg/dL) Urine Leukocyte Esterase Trace (NEG) Urine RBC 0 /HPF (0-2) Urine WBC 5-10 /HPF (0-4) Urine Squamous Epithelial Cells Mod /LPF Urine Bacteria Few /HPF (0-FEW) Urine Mucus Slight /LPF Medications Active Scripts Medications Dose Route/Sig Max Daily Dose Days Date Category Atorvastatin Calcium 20 Mg Tablet 1 Tab PO DAILY 12/05/20 Reported Lisinopril 10 Mg Tablet 1 Tab PO HS 12/05/20 Reported Impression . Acute hypoxemic respiratory failure secondary to acute PE Continue current IV heparin, switch to oral Eliquis in the a.m. Possibly discharge home tomorrow afternoon. Obtain venous Dopplers of the lower extremities. ELIJAH LAU MD Dec 06, 2020 11:33
--- NOTE | 2020-12-06 11:54 | CONS ---
DATE OF CONSULTATION: 12/06/2020 ATTENDING PHYSICIAN: Dr. Stratton. REASON FOR CONSULTATION: The patient is seen in pulmonary consultation at the request of Dr. Stratton for acute dyspnea, abnormal CT angiogram revealing bilateral pulmonary emboli. HISTORY OF PRESENT ILLNESS: The patient is a 60-year-old who has been short of breath now for approximately 2 weeks. Initially, she went to see her primary care doctor, was slightly short of breath at the time she was treated for acute sinusitis. The patient has never smoked. She does have a history of breast cancer, status post partial lumpectomy. She presented yesterday because of shortness of breath, was worsened. She was unable to take deep breath over the last 2-3 days. She was walking and had to stop a couple times to get her breath under control. She denies any acute onset of shortness of breath associated with syncope. She presented with the above complaints. She underwent CT angiogram. I reviewed the CT, there is extensive bilateral pulmonary emboli with evidence of right heart strain. The patient denies fever or chills. No recent COVID-19 exposures. She tested negative in October for COVID. PAST MEDICAL HISTORY: Hypertension and hyperlipidemia. She has had previous lumpectomy for breast cancer. PAST SURGICAL HISTORY: As above, lumpectomy. She also had a hysterectomy. ALLERGIES: No known drug allergies. FAMILY HISTORY: Diabetes. No thrombophilia. SOCIAL HISTORY: She denies any alcohol or tobacco use. REVIEW OF SYSTEMS: As indicated above, otherwise, a 10-point system was reviewed and negative. CONSTITUTIONAL: No fever or chills. EYES: No change in visual acuity. HENT: No nasal congestion or sore throat. PULMONARY: As indicated above. CARDIOVASCULAR: No chest pain. No pressure, no syncope. PULMONARY: As indicated above. GASTROINTESTINAL: No nausea, vomiting, diarrhea. GENITOURINARY: No dysuria or frequency. MUSCULOSKELETAL: No localized muscle aches or joint pains. SKIN: No new skin rashes. CURRENT MEDICATION: List was reviewed. She is on IV heparin. PHYSICAL EXAMINATION: VITAL SIGNS: Stable. O2 saturation was greater than 92%, currently on 2 liters. HEENT: Eyes, the sclerae were nonicteric. NECK: Jugular venous distention was not elevated. No lymphadenopathy. CHEST: Full expansion. LUNGS: Adequate flow with no wheezes. CARDIOVASCULAR: Regular rate and rhythm with S1, S2, no S3. ABDOMEN: Soft, nontender, nondistended. EXTREMITIES: No clubbing or cyanosis. No pitting edema. NEUROLOGICAL: The patient was awake, alert, following commands. A detailed neuro exam was not performed. LABORATORY DATA: Reviewed. Influenza screen was negative. Arterial blood gas revealed a pH of 7.44, PaCO2 of 30, pO2 of 59. White count was normal. D-dimer was 2.34. UA was noted. IMPRESSION: 1. Acute pulmonary embolism. 2. Acute cor pulmonale. 3. Progressive dyspnea, acute hypoxemic respiratory failure secondary to above. 4. History of allergic rhinitis. PLAN: 1. Recommend to continue IV heparin. 2. Switch to Eliquis in the a.m. possibly discharge home soon. 3. We will obtain bilateral venous Dopplers of the lower extremities. 4. Recommend treatment for 6 months, discontinue anticoagulation and obtain a hypercoagulable panel. 5. The patient is to follow up with PCP and undergo colonoscopy and/or Pap smear. I do appreciate the privilege in sharing in the patient's care. ELIJAH LAU MD DR: SAMY/dg JOB#: [id number] / [id number]
--- NOTE | 2020-12-06 13:09 | RAD ---
EXAM: Bilateral lower extremity venous Doppler sonogram. HISTORY: Pain and swelling. TECHNIQUE: [place] scale and color Doppler sonographic evaluation of the bilateral lower extremity veins with spectral waveform analysis was performed. FINDINGS: There is normal color flow, normal compressibility and there are normal spectral waveforms in the common femoral, superficial femoral, popliteal, posterior tibial and greater saphenous veins. The exam is limited due to body habitus. IMPRESSION: No Doppler evidence of lower extremity deep venous thrombosis. Electronically signed by: Ronda Chaudhry MD (12/06/2020 1:03 PM) [facility]
[2020-12-06 15:00] VITALS: BP 154/79
[2020-12-06] MEDS ORDERED: DEXTROSE 50% 25 GM / 50ML DISP.SYRIN. IV PRN (15:00)
[2020-12-06] MEDS: INSULIN LISPRO 300 UNITS/3 ML VIAL. SQ SCH (17:00)
[2020-12-06 19:46] VITALS: BP 116/75
[2020-12-06] MEDS: LISINOPRIL 10 MG TABLET PO SCH (20:30)
[2020-12-06] MEDS: ATORVASTATIN CALCIUM 20 MG TABLET PO SCH (20:30)
[2020-12-06 23:29] VITALS: BP 111/68
[2020-12-07] MEDS: HEPARIN 25,000UTS/250ML PREMIX 250 ML IV PRN (02:00)
[2020-12-07 03:33] VITALS: BP 124/84
[2020-12-07 03:47] LABS: BASO % 0 % (0-3); EOS # 0.1 x10^3/uL (0.0-0.7); EOS % 1 % (0-3); HEMATOCRIT 37.7 % (36.0-47.0); HEMOGLOBIN 12.6 g/dL (12.0-15.5); LYMPH # 3.7 x10^3/uL (1.0-4.8); LYMPH % 30 % (24-48); MEAN CORPUSCULAR HEMOGLOBIN 31 pg (25-35); MEAN CORPUSCULAR HGB CONC 34 g/dL (31-37); MEAN CORPUSCULAR VOLUME 91 fL (79-100); MONO # 0.6 x10^3/uL (0.0-1.1); MONO % 5 % (0-9); NEUT % 64 % (31-73); PLATELET COUNT 181 x10^3/uL (140-400); RED BLOOD COUNT 4.13 x10^6/uL (3.50-5.40); RED CELL DISTRIBUTION WIDTH 13.9 % (11.5-14.5); WHITE BLOOD COUNT 12.4 x10^3/uL (4.0-11.0)
[2020-12-07 03:49] LABS: ALBUMIN 2.7 g/dL (3.4-5.0); ALBUMIN/GLOBULIN RATIO 0.8 (1.0-1.7); CALCIUM 8.7 mg/dL (8.5-10.1); CREATININE 0.9 mg/dL (0.6-1.0); GFR 63.7; POTASSIUM 3.6 mmol/L (3.5-5.1); TOTAL BILIRUBIN 0.5 mg/dL (0.2-1.0); TOTAL PROTEIN 6.2 g/dL (6.4-8.2)
[2020-12-07 07:00] VITALS: BP 132/83
[2020-12-07] MEDS: INSULIN LISPRO 300 UNITS/3 ML VIAL. SQ SCH ×3 (08:00→17:00)
--- NOTE | 2020-12-07 08:48 | PDOC ---
PULMONARY PROGRESS NOTES DATE: 12/07/20 TIME: 08:43 Subjective Patient is resting comfortably on nasal cannula oxygen The increased shortness of breath does report a nonproductive cough No overnight concerns from nursing Vitals Vital Signs Date Time Temp Pulse Resp B/P (MAP) Pulse Ox O2 Delivery O2 Flow Rate FiO2 12/07/20 03:33 97.6 70 16 124/84 (97) 93 Nasal Cannula 2.0 97.6 ROS: No Nausea, No Chest Pain, No Abdominal Pain, No Increase Cough General: Alert, Oriented X4 Lungs: Clear Cardiovascular: S1, S2 Abdomen: Soft Extremities: No Edema Skin: Warm, Dry Labs Laboratory Tests Test 12/05/20 15:02 12/05/20 15:51 12/05/20 15:55 12/05/20 19:19 White Blood Count 10.0 x10^3/uL (4.0-11.0) Red Blood Count 4.46 x10^6/uL (3.50-5.40) Hemoglobin 13.8 g/dL (12.0-15.5) Hematocrit 40.4 % (36.0-47.0) Mean Corpuscular Volume 91 fL (79-100) Mean Corpuscular Hemoglobin 31 pg (25-35) Mean Corpuscular Hemoglobin Concent 34 g/dL (31-37) Red Cell Distribution Width 13.6 % (11.5-14.5) Platelet Count 184 x10^3/uL (140-400) Neutrophils (%) (Auto) 67 % (31-73) Lymphocytes (%) (Auto) 26 % (24-48) Monocytes (%) (Auto) 6 % (0-9) Eosinophils (%) (Auto) 1 % (0-3) Basophils (%) (Auto) 0 % (0-3) Neutrophils # (Auto) 6.7 x10^3/uL (1.8-7.7) Lymphocytes # (Auto) 2.6 x10^3/uL (1.0-4.8) Monocytes # (Auto) 0.6 x10^3/uL (0.0-1.1) Eosinophils # (Auto) 0.1 x10^3/uL (0.0-0.7) Basophils # (Auto) 0.0 x10^3/uL (0.0-0.2) Prothrombin Time 13.9 SEC (11.7-14.0) Prothromb Time International Ratio 1.1 (0.8-1.1) D-Dimer (Roseline) 2.34 ug/mlFEU (0.00-0.50) Sodium Level 142 mmol/L (136-145) Potassium Level 3.6 mmol/L (3.5-5.1) Chloride Level 107 mmol/L (98-107) Carbon Dioxide Level 21 mmol/L (21-32) Anion Gap 14 (6-14) Blood Urea Nitrogen 27 mg/dL (7-20) Creatinine 0.8 mg/dL (0.6-1.0) Estimated GFR (Cockcroft-Gault) 72.9 BUN/Creatinine Ratio 34 (6-20) Glucose Level 171 mg/dL (70-99) Calcium Level 9.0 mg/dL (8.5-10.1) Total Bilirubin 1.1 mg/dL (0.2-1.0) Aspartate Amino Transf (AST/SGOT) 41 U/L (15-37) Alanine Aminotransferase (ALT/SGPT) 70 U/L (14-59) Alkaline Phosphatase 118 U/L (46-116) Troponin I Quantitative 0.025 ng/mL (0.000-0.055) NJ-Hsw-X-Type Natriuretic Peptide 2897 pg/mL (0-124) Total Protein 7.1 g/dL (6.4-8.2) Albumin 3.1 g/dL (3.4-5.0) Albumin/Globulin Ratio 0.8 (1.0-1.7) Lipase 132 U/L (73-393) O2 Saturation 91 % (92-99) Arterial Blood pH 7.44 (7.35-7.45) Arterial Blood pCO2 at Patient Temp 30 mmHg (35-46) Arterial Blood pO2 at Patient Temp 59 mmHg (65-108) Arterial Blood HCO3 20 mmol/L (21-28) Arterial Blood Base Excess -3 mmol/L (-3-3) Oxyhemoglobin 90.6 % Methemoglobin 0.3 % (0.0-1.9) Carbon Monoxide, Quantitative 0.3 % (0.0-1.9) FiO2 28/ 2l nc Influenza Type A Antigen Negative (NEGATIVE) Influenza Type B Antigen Negative (NEGATIVE) Urine Collection Type Unknown Urine Color Yellow Urine Clarity Clear Urine pH 5.5 (<5.0-8.0) Urine Specific [place] >=1.030 (1.000-1.030) Urine Protein 30 mg/dL (NEG-TRACE) Urine Glucose (UA) Negative mg/dL (NEG) Urine Ketones (Stick) Trace mg/dL (NEG) Urine Blood Trace (NEG) Urine Nitrite Negative (NEG) Urine Bilirubin Negative (NEG) Urine Urobilinogen Dipstick 0.2 mg/dL (0.2 mg/dL) Urine Leukocyte Esterase Trace (NEG) Urine RBC 0 /HPF (0-2) Urine WBC 5-10 /HPF (0-4) Urine Squamous Epithelial Cells Mod /LPF Urine Bacteria Few /HPF (0-FEW) Urine Mucus Slight /LPF Test 12/06/20 11:10 12/06/20 16:57 12/06/20 18:10 12/06/20 20:03 Heparin Anti-Xa Act, Unfractionated > 1.10 IU/mL (0.30-0.70) > 1.10 IU/mL (0.30-0.70) Glucose (Fingerstick) 111 mg/dL (70-99) 136 mg/dL (70-99) Test 12/07/20 01:20 12/07/20 08:00 12/07/20 08:12 White Blood Count 12.4 x10^3/uL (4.0-11.0) Red Blood Count 4.13 x10^6/uL (3.50-5.40) Hemoglobin 12.6 g/dL (12.0-15.5) Hematocrit 37.7 % (36.0-47.0) Mean Corpuscular Volume 91 fL (79-100) Mean Corpuscular Hemoglobin 31 pg (25-35) Mean Corpuscular Hemoglobin Concent 34 g/dL (31-37) Red Cell Distribution Width 13.9 % (11.5-14.5) Platelet Count 181 x10^3/uL (140-400) Neutrophils (%) (Auto) 64 % (31-73) Lymphocytes (%) (Auto) 30 % (24-48) Monocytes (%) (Auto) 5 % (0-9) Eosinophils (%) (Auto) 1 % (0-3) Basophils (%) (Auto) 0 % (0-3) Neutrophils # (Auto) 8.0 x10^3/uL (1.8-7.7) Lymphocytes # (Auto) 3.7 x10^3/uL (1.0-4.8) Monocytes # (Auto) 0.6 x10^3/uL (0.0-1.1) Eosinophils # (Auto) 0.1 x10^3/uL (0.0-0.7) Basophils # (Auto) 0.0 x10^3/uL (0.0-0.2) Heparin Anti-Xa Act, Unfractionated 0.57 IU/mL (0.30-0.70) 0.56 IU/mL (0.30-0.70) Sodium Level 143 mmol/L (136-145) Potassium Level 3.6 mmol/L (3.5-5.1) Chloride Level 109 mmol/L (98-107) Carbon Dioxide Level 24 mmol/L (21-32) Anion Gap 10 (6-14) Blood Urea Nitrogen 27 mg/dL (7-20) Creatinine 0.9 mg/dL (0.6-1.0) Estimated GFR (Cockcroft-Gault) 63.7 BUN/Creatinine Ratio 30 (6-20) Glucose Level 118 mg/dL (70-99) Calcium Level 8.7 mg/dL (8.5-10.1) Total Bilirubin 0.5 mg/dL (0.2-1.0) Aspartate Amino Transf (AST/SGOT) 24 U/L (15-37) Alanine Aminotransferase (ALT/SGPT) 55 U/L (14-59) Alkaline Phosphatase 87 U/L (46-116) Total Protein 6.2 g/dL (6.4-8.2) Albumin 2.7 g/dL (3.4-5.0) Albumin/Globulin Ratio 0.8 (1.0-1.7) Glucose (Fingerstick) 112 mg/dL (70-99) Laboratory Tests Test 12/06/20 11:10 12/06/20 16:57 12/06/20 18:10 12/06/20 20:03 Heparin Anti-Xa Act, Unfractionated > 1.10 IU/mL (0.30-0.70) > 1.10 IU/mL (0.30-0.70) Glucose (Fingerstick) 111 mg/dL (70-99) 136 mg/dL (70-99) Test 12/07/20 01:20 12/07/20 08:00 12/07/20 08:12 White Blood Count 12.4 x10^3/uL (4.0-11.0) Red Blood Count 4.13 x10^6/uL (3.50-5.40) Hemoglobin 12.6 g/dL (12.0-15.5) Hematocrit 37.7 % (36.0-47.0) Mean Corpuscular Volume 91 fL (79-100) Mean Corpuscular Hemoglobin 31 pg (25-35) Mean Corpuscular Hemoglobin Concent 34 g/dL (31-37) Red Cell Distribution Width 13.9 % (11.5-14.5) Platelet Count 181 x10^3/uL (140-400) Neutrophils (%) (Auto) 64 % (31-73) Lymphocytes (%) (Auto) 30 % (24-48) Monocytes (%) (Auto) 5 % (0-9) Eosinophils (%) (Auto) 1 % (0-3) Basophils (%) (Auto) 0 % (0-3) Neutrophils # (Auto) 8.0 x10^3/uL (1.8-7.7) Lymphocytes # (Auto) 3.7 x10^3/uL (1.0-4.8) Monocytes # (Auto) 0.6 x10^3/uL (0.0-1.1) Eosinophils # (Auto) 0.1 x10^3/uL (0.0-0.7) Basophils # (Auto) 0.0 x10^3/uL (0.0-0.2) Heparin Anti-Xa Act, Unfractionated 0.57 IU/mL (0.30-0.70) 0.56 IU/mL (0.30-0.70) Sodium Level 143 mmol/L (136-145) Potassium Level 3.6 mmol/L (3.5-5.1) Chloride Level 109 mmol/L (98-107) Carbon Dioxide Level 24 mmol/L (21-32) Anion Gap 10 (6-14) Blood Urea Nitrogen 27 mg/dL (7-20) Creatinine 0.9 mg/dL (0.6-1.0) Estimated GFR (Cockcroft-Gault) 63.7 BUN/Creatinine Ratio 30 (6-20) Glucose Level 118 mg/dL (70-99) Calcium Level 8.7 mg/dL (8.5-10.1) Total Bilirubin 0.5 mg/dL (0.2-1.0) Aspartate Amino Transf (AST/SGOT) 24 U/L (15-37) Alanine Aminotransferase (ALT/SGPT) 55 U/L (14-59) Alkaline Phosphatase 87 U/L (46-116) Total Protein 6.2 g/dL (6.4-8.2) Albumin 2.7 g/dL (3.4-5.0) Albumin/Globulin Ratio 0.8 (1.0-1.7) Glucose (Fingerstick) 112 mg/dL (70-99) Medications Active Scripts Medications Dose Route/Sig Max Daily Dose Days Date Category Atorvastatin Calcium 20 Mg Tablet 1 Tab PO DAILY 12/05/20 Reported Lisinopril 10 Mg Tablet 1 Tab PO HS 12/05/20 Reported Comments CTA chest IMPRESSION: 1. Extensive bilateral pulmonary emboli with involvement of the main pulmonary arteries. There may be a component of superimposed right heart strain. No saddle embolus is seen. 2. Nonspecific right perihilar groundglass opacity which is likely due to atelectasis. No consolidated infiltrate is seen. Impression . IMPRESSION: 1. Acute pulmonary embolism. 2. Acute cor pulmonale. 3. Progressive dyspnea, acute hypoxemic respiratory failure secondary to above. 4. History of allergic rhinitis. Plan . PLAN: Continue supplemental oxygen to keep oxygen saturations greater than 92%, currently on 2 L nasal cannula Symptomatic treatment of cough 6-minute walk prior to discharge DC IV heparin, transition to p.o. Eliquis Bilateral lower extremity ultrasounds negative for DVT Recommend 6 months of anticoagulation and obtain a hypercoagulable panel as an outpatient Patient also needs to follow-up with PCP to undergo colonoscopy and Pap smear Out of bed as tolerated DVT/GI prophylaxis Discussed with ELIJAH MCCONNELL MD Dec 07, 2020 08:48
[2020-12-07] MEDS ORDERED: ANTI-COAG MONITOR BY PHARMACY. MC PRN (09:00)
[2020-12-07] MEDS ORDERED: APIXABAN 5 MG TABLET. PO SCH (09:00)
[2020-12-07 11:00] VITALS: BP 120/79
--- NOTE | 2020-12-07 14:58 | NUR ---
SW following for discharge planning. Spoke with RN and reviewed chart. SW met with pt. Pt from home alone. Pt declined the need for HH on discharge. Pt COVID negative, 2l 02, cardiac diet. Pt does not have home 02. 6 min walk ordered. Pt stated no preference in 02 provider. Pt to discharge on Eloquis. SW called pt's pharmacy per approval from pt to check to see that her insurance covers this medication. Pt uses [facility] pharmacy in [place] ([phone]). The cost for this medication is $55.17. Pt stated she can afford the $55.17 Addendum: 12/07/20 at 1600 by LENO BENTLEY SW awaiting results of 6 min walk for possible 02 setup. Addendum: 12/07/20 at 1640 by LENO BENTLEY 6 min walk indicated no home 02 needs. Pt to discharge home, self-care. No further SW needs at this time.
[2020-12-07 15:00] VITALS: BP 123/82
[2020-12-07] MEDS ORDERED: APIX5TAB PO (15:31)
--- NOTE | 2020-12-07 17:27 | PDOC3 ---
Discharge Summary Visit Information Date of Admission: Dec 05, 2020 Date of Discharge: Dec 07, 2020 Admitting Diagnosis Comment: Bilateral pulmonary emboli Final Diagnosis Problems Medical Problems: (1) Acute co pulmonale Status: Acute (2) Negative test for COVID-19 Status: Acute (3) Pulmonary embolism Status: Acute Brief Hospital Course Allergies Allergies Coded Allergies Type Severity Reaction Last Updated Verified No Known Drug Allergies 12/05/20 No Vital Signs Vital Signs Date Time Temp Pulse Resp B/P (MAP) Pulse Ox O2 Delivery O2 Flow Rate FiO2 12/07/20 11:00 97.9 70 19 120/79 (93) 93 Nasal Cannula 2.0 97.9 Lab Results Laboratory Tests Test 12/05/20 19:19 12/06/20 11:10 12/06/20 16:57 12/06/20 18:10 Urine Collection Type Unknown Urine Color Yellow Urine Clarity Clear Urine pH 5.5 (<5.0-8.0) Urine Specific [place] >=1.030 (1.000-1.030) Urine Protein 30 mg/dL (NEG-TRACE) Urine Glucose (UA) Negative mg/dL (NEG) Urine Ketones (Stick) Trace mg/dL (NEG) Urine Blood Trace (NEG) Urine Nitrite Negative (NEG) Urine Bilirubin Negative (NEG) Urine Urobilinogen Dipstick 0.2 mg/dL (0.2 mg/dL) Urine Leukocyte Esterase Trace (NEG) Urine RBC 0 /HPF (0-2) Urine WBC 5-10 /HPF (0-4) Urine Squamous Epithelial Cells Mod /LPF Urine Bacteria Few /HPF (0-FEW) Urine Mucus Slight /LPF Heparin Anti-Xa Act, Unfractionated > 1.10 IU/mL (0.30-0.70) > 1.10 IU/mL (0.30-0.70) Glucose (Fingerstick) 111 mg/dL (70-99) Test 12/06/20 20:03 12/07/20 01:20 12/07/20 08:00 12/07/20 08:12 Glucose (Fingerstick) 136 mg/dL (70-99) 112 mg/dL (70-99) White Blood Count 12.4 x10^3/uL (4.0-11.0) Red Blood Count 4.13 x10^6/uL (3.50-5.40) Hemoglobin 12.6 g/dL (12.0-15.5) Hematocrit 37.7 % (36.0-47.0) Mean Corpuscular Volume 91 fL (79-100) Mean Corpuscular Hemoglobin 31 pg (25-35) Mean Corpuscular Hemoglobin Concent 34 g/dL (31-37) Red Cell Distribution Width 13.9 % (11.5-14.5) Platelet Count 181 x10^3/uL (140-400) Neutrophils (%) (Auto) 64 % (31-73) Lymphocytes (%) (Auto) 30 % (24-48) Monocytes (%) (Auto) 5 % (0-9) Eosinophils (%) (Auto) 1 % (0-3) Basophils (%) (Auto) 0 % (0-3) Neutrophils # (Auto) 8.0 x10^3/uL (1.8-7.7) Lymphocytes # (Auto) 3.7 x10^3/uL (1.0-4.8) Monocytes # (Auto) 0.6 x10^3/uL (0.0-1.1) Eosinophils # (Auto) 0.1 x10^3/uL (0.0-0.7) Basophils # (Auto) 0.0 x10^3/uL (0.0-0.2) Heparin Anti-Xa Act, Unfractionated 0.57 IU/mL (0.30-0.70) 0.56 IU/mL (0.30-0.70) Sodium Level 143 mmol/L (136-145) Potassium Level 3.6 mmol/L (3.5-5.1) Chloride Level 109 mmol/L (98-107) Carbon Dioxide Level 24 mmol/L (21-32) Anion Gap 10 (6-14) Blood Urea Nitrogen 27 mg/dL (7-20) Creatinine 0.9 mg/dL (0.6-1.0) Estimated GFR (Cockcroft-Gault) 63.7 BUN/Creatinine Ratio 30 (6-20) Glucose Level 118 mg/dL (70-99) Calcium Level 8.7 mg/dL (8.5-10.1) Total Bilirubin 0.5 mg/dL (0.2-1.0) Aspartate Amino Transf (AST/SGOT) 24 U/L (15-37) Alanine Aminotransferase (ALT/SGPT) 55 U/L (14-59) Alkaline Phosphatase 87 U/L (46-116) Total Protein 6.2 g/dL (6.4-8.2) Albumin 2.7 g/dL (3.4-5.0) Albumin/Globulin Ratio 0.8 (1.0-1.7) Test 12/07/20 11:06 12/07/20 16:09 Glucose (Fingerstick) 104 mg/dL (70-99) 98 mg/dL (70-99) Laboratory Tests Test 12/06/20 18:10 12/06/20 20:03 12/07/20 01:20 12/07/20 08:00 Heparin Anti-Xa Act, Unfractionated > 1.10 IU/mL (0.30-0.70) 0.57 IU/mL (0.30-0.70) 0.56 IU/mL (0.30-0.70) Glucose (Fingerstick) 136 mg/dL (70-99) White Blood Count 12.4 x10^3/uL (4.0-11.0) Red Blood Count 4.13 x10^6/uL (3.50-5.40) Hemoglobin 12.6 g/dL (12.0-15.5) Hematocrit 37.7 % (36.0-47.0) Mean Corpuscular Volume 91 fL (79-100) Mean Corpuscular Hemoglobin 31 pg (25-35) Mean Corpuscular Hemoglobin Concent 34 g/dL (31-37) Red Cell Distribution Width 13.9 % (11.5-14.5) Platelet Count 181 x10^3/uL (140-400) Neutrophils (%) (Auto) 64 % (31-73) Lymphocytes (%) (Auto) 30 % (24-48) Monocytes (%) (Auto) 5 % (0-9) Eosinophils (%) (Auto) 1 % (0-3) Basophils (%) (Auto) 0 % (0-3) Neutrophils # (Auto) 8.0 x10^3/uL (1.8-7.7) Lymphocytes # (Auto) 3.7 x10^3/uL (1.0-4.8) Monocytes # (Auto) 0.6 x10^3/uL (0.0-1.1) Eosinophils # (Auto) 0.1 x10^3/uL (0.0-0.7) Basophils # (Auto) 0.0 x10^3/uL (0.0-0.2) Sodium Level 143 mmol/L (136-145) Potassium Level 3.6 mmol/L (3.5-5.1) Chloride Level 109 mmol/L (98-107) Carbon Dioxide Level 24 mmol/L (21-32) Anion Gap 10 (6-14) Blood Urea Nitrogen 27 mg/dL (7-20) Creatinine 0.9 mg/dL (0.6-1.0) Estimated GFR (Cockcroft-Gault) 63.7 BUN/Creatinine Ratio 30 (6-20) Glucose Level 118 mg/dL (70-99) Calcium Level 8.7 mg/dL (8.5-10.1) Total Bilirubin 0.5 mg/dL (0.2-1.0) Aspartate Amino Transf (AST/SGOT) 24 U/L (15-37) Alanine Aminotransferase (ALT/SGPT) 55 U/L (14-59) Alkaline Phosphatase 87 U/L (46-116) Total Protein 6.2 g/dL (6.4-8.2) Albumin 2.7 g/dL (3.4-5.0) Albumin/Globulin Ratio 0.8 (1.0-1.7) Test 12/07/20 08:12 12/07/20 11:06 12/07/20 16:09 Glucose (Fingerstick) 112 mg/dL (70-99) 104 mg/dL (70-99) 98 mg/dL (70-99) Brief Hospital Course History of Present Illness CHIEF COMPLAINT: Shortness of breath, cough and loose stools. HISTORY OF PRESENT ILLNESS: The patient is a pleasant middle-aged female who presented today with the above chief complaints. We did some imaging here in the ER. It appears she has bilateral pulmonary emboli. We are concerned she possibly could have COVID as well. I discussed the case with the ER physician. We are going to admit the patient and anticoagulate her and consult Pulmonary Medicine. Patient admitted to the medical floor where she was seen in consultation by pulmonary medicine patient initially was started on IV heparin and switched to oral Eliquis. Patient required some oxygen during her hospital stay most likely secondary to her body habitus baseline. She had Covid testing done with negative results fortunately. The patient did not have chest discomfort no palpitations no other concerns. She was started on Eliquis and has tolerated well. Signs and symptoms of concern when to seek medical attention was discussed prior to discharge. She was deemed appropriate for discharge from the pulmonary standpoint of view. She will be following up with her primary care physician in the outpatient setting. Assessment Assessment CTA chest IMPRESSION: 1. Extensive bilateral pulmonary emboli with involvement of the main pulmonary arteries. There may be a component of superimposed right heart strain. No saddle embolus is seen. 2. Nonspecific right perihilar groundglass opacity which is likely due to atelectasis. No consolidated infiltrate is seen. Discharge Information Condition at Discharge: Improved Follow Up: Weeks Disposition/Orders: D/C to Home Scheduled Apixaban (Eliquis) 5 Mg Tablet, 10 MG PO BID for PE for 7 Days, #28 Prescribed by: VINEET LEON MD on 12/07/20 1531 Apixaban (Eliquis) 5 Mg Tablet, 5 MG PO BID for PE for 30 Days, #60 Ref 2 Prescribed by: VINEET LEON MD on 12/07/20 1531 Atorvastatin Calcium (Atorvastatin Calcium) 20 Mg Tablet, 1 TAB PO DAILY for HYPERLIPIDEMIA, #30 Ref 5 (Reported) Entered as Reported by: Sunshine Gutierrez on 12/05/202050 Last Action: Continued on 12/05/202135 by Sunshine Gutierrez Lisinopril (Lisinopril) 10 Mg Tablet, 1 TAB PO HS for HTN, #30 Ref 5 (Reported) Entered as Reported by: Sunshine Gutierrez on 12/05/202050 Last Action: Continued on 12/05/202135 by Sunshine Gutierrez Justicifation of Admission Dx: Justifications for Admission: Justification of Admission Dx: VINEET Castro MD Dec 07, 2020 17:27
--- NOTE | 2020-12-07 18:02 | NUR ---
Discharge instructions given to patient regarding follow up appointment. Education given over PE, eliquis, and SOA. Pt verbalizes understanding.
[2020-12-14] MEDS ORDERED: APIXABAN 5 MG TABLET. PO SCH (09:00)
== END 2020-12-07 18:30 | disposition home or self-care (01) | DRG 175 ==
LOC: ER 14:09 → 6 SOUTH 17:50
PROVIDERS: ADMIT Internal Medicine; ATTEND Internal Medicine
DX: I26.09 Other pulmonary embolism with acute cor pulmonale (principal); J96.01 Acute respiratory failure with hypoxia; J98.11 Atelectasis; E66.01 Morbid (severe) obesity due to excess calories; E78.00 Pure hypercholesterolemia, unspecified; I10 Essential (primary) hypertension; E78.5 Hyperlipidemia, unspecified; Z20.822 Contact with and (suspected) exposure to COVID-19; Z83.3 Family history of diabetes mellitus; Z85.3 Personal history of malignant neoplasm of breast; Z90.711 Acquired absence of uterus with remaining cervical stump
CPT/HCPCS: 36415; 36600; 71045; 71275; 80053; 81001; 82805; 82962; 83690; 83880; 84484; 85025; 85379; 85520; 85610; 87086; 87804; 93005; 93970; 94618; 96374; 96375; 99285; J0456; J1644; J1815; J2930; Q9967; U0003; G0378

== ENCOUNTER → 2021-02-01 | Outpatient (CLI) | payer OTHER ==
[~2021-02-01] MED LIST: APIX5TAB PO; ATOR20TA58 PO; LISI10TA16 PO
--- NOTE | 2021-02-01 13:42 | CARD ---
MR#: [id number] Date of Study: 02/01/2021 Ordering Physician: LADY DUBON, Referring Physician: LADY DUBON, Tech: Annika Baca [facility] APPROVED REPORT EXAM: Two-dimensional and M-mode echocardiogram with Doppler and color Doppler. Other Information Quality : Fair INDICATION Pulmonary Hypertention RISK FACTORS Hypertension Obesity 2D DIMENSIONS RVDd3.0 (2.9-3.5cm)Left Atrium(2D)3.2 (1.6-4.0cm) IVSd0.8 (0.7-1.1cm)Aortic Root(2D)2.5 (2.0-3.7cm) LVDd4.4 (3.9-5.9cm)LVOT Diameter2.0 (1.8-2.4cm) PWd0.9 (0.7-1.1cm)LVDs2.2 (2.5-4.0cm) FS (%) 30.0 %SV72.8 ml LVEF(%)60.0 (>50%) Aortic Valve AoV Peak Austin.198.8cm/sAoV VTI40.1cm AO Peak GR.15.8mmHgLVOT Peak Austin.159.2cm/s LVOT VTI 33.07cmAO Mean GR.8mmHg DESIREE (VMAX)2.52ox4CVJ (VTI)2.47cm2 Mitral Valve MV E Wesooecp70.0cm/sMV DECEL IZRX388ua MV A Qivtnkea16.4cm/sMV LEE49qx E/A Ratio1.4MVA (PHT)3.64cm2 TDI E/Lateral E'6.4E/Medial E'9.7 Tricuspid Valve TR P. Zgmvvfyk667cz/sRAP PWTQJHRS3enPo TR Peak Gr.47jgOyZWAJ14plYq Pulmonary Vein S1 Dcxtulyl43.0cm/sD2 Mjjsywti51.1cm/s LEFT VENTRICLE The left ventricle is normal size. There is normal left ventricular wall thickness. The left ventricu lar systolic function is normal and the ejection fraction is within normal range. The Ejection Fracti on is 55-60%. There is normal LV segmental wall motion. Transmitral Doppler flow pattern is Grade II- pseudonormal filling dynamics. RIGHT VENTRICLE The right ventricle is normal size. The right ventricular systolic function is normal. ATRIA The left atrium size is normal. The right atrium size is normal. The interatrial septum is intact wit h no evidence for an atrial septal defect or patent foramen ovale as noted on 2-D or Doppler imaging. AORTIC VALVE The aortic valve is calcified but opens well. Doppler and Color Flow revealed no significant aortic r egurgitation. There is no significant aortic valvular stenosis. MITRAL VALVE The mitral valve is calcified but opens well. Mitral annular calcification is borderline. There is no evidence of mitral valve prolapse. There is no mitral valve stenosis. Doppler and Color-flow reveale d trace mitral regurgitation. TRICUSPID VALVE The tricuspid valve is normal in structure and function. Doppler and Color Flow revealed mild tricusp id regurgitation. There is moderate pulmonary hypertension. The PA pressure was estimated at 49 mmHg. There is no tricuspid valve stenosis. PULMONIC VALVE The pulmonic valve is not well visualized. Doppler and Color Flow revealed no pulmonic valvular regur gitation. There is no pulmonic valvular stenosis. GREAT VESSELS The aortic root is normal in size. The ascending aorta is not well seen. The IVC is normal in size an d collapses >50% with inspiration. PERICARDIAL EFFUSION There is no evidence of significant pericardial effusion. Critical Notification Critical Value: No <Conclusion> The left ventricular systolic function is normal and the ejection fraction is within normal range. Th e Ejection Fraction is 55-60%. There is normal LV segmental wall motion. Doppler and Color Flow revealed mild tricuspid regurgitation. There is moderate pulmonary hypertensio n. The PA pressure was estimated at 49 mmHg. Signed by : Jono Martin, Electronically Approved : 02/01/2021 13:41:58
== END ==
LOC: ECHO 08:44
PROVIDERS: ATTEND Internal Medicine Pulmonary Disease
DX: I08.3 Combined rheumatic disorders of mitral, aortic and tricuspid valves (principal); I27.20 Pulmonary hypertension, unspecified
CPT/HCPCS: 93306

== ENCOUNTER → 2021-02-15 | Outpatient (CLI) | payer OTHER ==
[~2021-02-15] MED LIST changes: +IOHEXOL 350 MG/ML 100 ML VIAL. IV ONE
--- NOTE | 2021-02-15 11:07 | RAD ---
CT angiography chest 02/15/2021 Indication: Pulmonary embolism with residual pulmonary hypertension. Technique: Multiple contiguous axial images were obtained through the chest after administration of i ntravenous iodinated contrast. Coronal, sagittal, and 3-D MIP reformations were created. Comparison: CT angiography of the chest December 05, 2020 Findings: The density of contrast within the pulmonary arteries is suboptimal for evaluation of distal pulmonar y arteries. There is no filling defect within the main pulmonary arteries through the segmental arter ies. No other indirect evidence of pulmonary embolism is identified. Visualized arteries demonstrate no definitive intravascular webs. No gross pruning of the pulmonary arteries is seen. No evidence of chronic pulmonary embolism is appreciated. No pneumothorax, pleural effusion, or acute infiltrate is identified. It size is top unremarkable. No pericardial effusion is seen. No pathologically enlarged mediastinal adenopathy is seen. Ill-defined left renal hypodensity noted with indeterminate attenuati on characteristics. Consider multiphase abdominal CT for further characterization no other abnormalit ies of the upper abdomen are identified. No acute osseous changes are seen. IMPRESSION: 1. No evidence of acute or chronic pulmonary embolism is identified. No other acute cardiopulmonary p rocess is identified 2. Ill-defined hypodensity in the left kidney which is nonspecific in appearance and density. Suggest multiphase renal protocol CT for further characterization. Alternatively, ultrasound could be consid ered, but may be limited by body habitus. CT DOSING PQRS STATEMENT: One or more of the following individualized dose reduction techniques were utilized for this examinat ion: 1. Automated exposure control 2. Adjustment of the mA and/or kV according to patient size 3. Use of iterative reconstruction technique Electronically signed by: Jorge Alonso MD (02/15/2021 11:05 AM) [id number]
== END ==
LOC: CT 09:41
PROVIDERS: ATTEND Internal Medicine Pulmonary Disease
DX: I27.20 Pulmonary hypertension, unspecified (principal)
CPT/HCPCS: 71275; Q9967

== ENCOUNTER → 2021-03-01 | Outpatient (CLI) | payer OTHER ==
[~2021-03-01] MED LIST changes: +IOHEXOL 300 MG/ML 100ML VIAL. IV ONE; -IOHEXOL 350 MG/ML 100 ML VIAL. IV ONE
--- NOTE | 2021-03-01 09:59 | RAD ---
CT scan of the abdomen without and with contrast 03/01/2021 CLINICAL HISTORY: Ill-defined hypodensity seen the left kidney on CTA of the chest. TECHNIQUE: Unenhanced, contiguous, 3 mm axial sections were obtained through the abdomen. After the i ntravenous administration of 75 cc of Omnipaque 300, contiguous, 0.625 mm axial sections were obtaine d through the abdomen. Images were obtained using an arterial, venous and delayed phase of scanning. One or more of the following individualized dose reduction techniques were utilized for this study: 1. Automated exposure control. 2. Adjustment of the mA and/or kV according to patient size. 3. Use of iterative reconstruction technique. FINDINGS: Comparison is made to patient's CTA of the chest dated 12/05/2020. Images through the lung bases demonstrate minimal dependent subsegmental atelectasis bilaterally. The re is mild cardiomegaly. Unenhanced images through the kidneys demonstrate several nonobstructing calculi involving the left k idney which measure 1 to 2 mm in size. On the postcontrast images, decreased attenuation of the liver parenchyma is seen consistent with fat ty infiltration. The spleen, pancreas and adrenal glands are within normal limits. Normal perfusion, uptake and excretion of contrast by both kidneys is seen. There is no evidence of o bstruction or duplication of either collecting system. Three rounded low-attenuation lesions are seen involving the superior/midpole the right kidney. These measure 8 mm to 2.7 cm in size. They are cons istent with cysts. No further imaging evaluation is recommended. No abnormality of the left kidney is seen. Atherosclerotic calcification of the abdominal aorta is seen. The abdominal aorta tapers normally. No free fluid or free air is seen within the abdomen. There is no evidence of bowel obstruction. Degene rative changes are seen involving the lumbar spine. IMPRESSION: 1. Nonobstructing left renal calculi. 2. . 3 cysts are seen involving the right kidney which measure 8 mm to 2.7 cm in size. No mass lesion is seen involving the left kidney. Electronically signed by: Miguel Marsh MD (03/01/2021 9:57 AM) [id number]
== END ==
LOC: CT 08:49
PROVIDERS: ATTEND Internal Medicine Critical Care Medicine
DX: N20.0 Calculus of kidney (principal); N28.1 Cyst of kidney, acquired; I70.0 Atherosclerosis of aorta
CPT/HCPCS: 74170; Q9967

== ENCOUNTER → 2021-06-21 | Outpatient (CLI) | payer OTHER ==
[~2021-06-21] MED LIST changes: -IOHEXOL 300 MG/ML 100ML VIAL. IV ONE
--- NOTE | 2021-06-21 18:07 | CARD ---
MR#: [id number] Date of Study: 06/21/2021 Ordering Physician: LADY DUBON, Referring Physician: LADY DUBON, Tech: Slick Castro [facility] APPROVED REPORT EXAM: Two-dimensional and M-mode echocardiogram with Doppler and color Doppler. Other Information Quality : GoodHR: 72bpm Rhythm : NSR INDICATION Pulmonary Hypertention 2D DIMENSIONS Left Atrium(2D)3.8 (1.6-4.0cm)IVSd0.8 (0.7-1.1cm) Aortic Root(2D)2.8 (2.0-3.7cm)LVDd5.4 (3.9-5.9cm) LVOT Diameter1.9 (1.8-2.4cm)PWd0.8 (0.7-1.1cm) LVDs3.2 (2.5-4.0cm)FS (%) 41.0 % SV99.6 ml Aortic Valve AoV Peak Austin.180.3cm/sAoV VTI37.4cm AO Peak GR.13.0mmHgLVOT Peak Austin.99.2cm/s LVOT VTI 23.49cmAO Mean GR.7mmHg DESIREE (VMAX)1.73cw6CZG (VTI)1.70cm2 Mitral Valve MV E Sbjpkdij71.8cm/sMV DECEL LNAR849ms MV A Htswbsee88.9cm/sMV ENG49cz E/A Ratio1.4MVA (PHT)3.98cm2 TDI E/Lateral E'7.7E/Medial E'7.9 Pulmonary Valve PV Peak Hphqtihf935.0cm/sPV Peak Grad.5mmHg Tricuspid Valve TR P. Frshkori035iq/sTR Peak Gr.35mmHg Pulmonary Vein S1 Jhuxhnhz80.1cm/sD2 Jmtjfyne32.3cm/s LEFT VENTRICLE The left ventricle is normal size. There is normal left ventricular wall thickness. The left ventricu lar systolic function is normal and the ejection fraction is within normal range. Left ventricular ej ection fraction is 55 to 60%. There is normal LV segmental wall motion. The left ventricular diastoli c function and filling is normal for age. No left ventricle thrombus noted on this study. There is no ventricular septal defect visualized. There is no left ventricular aneurysm. There is no mass noted in the left ventricle. RIGHT VENTRICLE The right ventricle is normal size. There is normal right ventricular wall thickness. The right ventr icular systolic function is normal. ATRIA The left atrium is mildly dilated. The right atrium size is normal. The interatrial septum is intact with no evidence for an atrial septal defect or patent foramen ovale as noted on 2-D or Doppler imagi ng. AORTIC VALVE The aortic valve is normal in structure and function. Doppler and Color Flow revealed no significant aortic regurgitation. There is no significant aortic valvular stenosis. There is no aortic valvular v egetation. MITRAL VALVE The mitral valve is normal in structure and function. There is no evidence of mitral valve prolapse. There is no mitral valve stenosis. Doppler and Color Flow revealed trace mitral valve regurgitation. TRICUSPID VALVE The tricuspid valve is normal in structure and function. Doppler and Color Flow revealed mild tricusp id regurgitation. PAP of 40 mmHg. There is no tricuspid valve prolapse or vegetation. There is no tri cuspid valve stenosis. PULMONIC VALVE The pulmonary valve is normal in structure and function. Doppler and Color Flow revealed no pulmonic valvular regurgitation. There is no pulmonic valvular stenosis. GREAT VESSELS The aortic root is normal in size. The ascending aorta is normal in size. The pulmonary artery is nor mal. The IVC is normal in size and collapses >50% with inspiration. PERICARDIAL EFFUSION There is no pleural effusion. There is no evidence of significant pericardial effusion. Critical Notification Critical Value: No <Conclusion> The left ventricle is normal size. The left ventricular systolic function is normal and the ejection fraction is within normal range. Left ventricular ejection fraction is 55 to 60%. There is normal left ventricular wall thickness. Doppler and Color Flow revealed no significant aortic regurgitation. There is no significant aortic valvular stenosis. Doppler and Color Flow revealed trace mitral valve regurgitation. Doppler and Color Flow revealed mild tricuspid regurgitation. PAP of 40 mmHg. Signed by : Jonny Gregory MD Electronically Approved : 06/21/2021 18:07:45
== END ==
LOC: ECHO 08:37
PROVIDERS: ATTEND Internal Medicine Pulmonary Disease
DX: I36.1 Nonrheumatic tricuspid (valve) insufficiency (principal); I27.20 Pulmonary hypertension, unspecified
CPT/HCPCS: 93306

== ENCOUNTER → 2022-01-10 | Outpatient (CLI) | payer OTHER ==
--- NOTE | 2022-01-11 09:29 | CARD ---
MR#: [id number] Date of Study: 01/10/2022 Ordering Physician: STEVE WEST, Referring Physician: STEVE WEST, Tech: Regina Macias, [facility] APPROVED REPORT EXAM: Two-dimensional and M-mode echocardiogram with Doppler and color Doppler. Other Information Quality : AverageHR: 72bpm Rhythm : NSR INDICATION RISK FACTORS Hypertension Obesity Hyperlipidemia 2D DIMENSIONS RVDd3.8 (2.9-3.5cm)Left Atrium(2D)3.3 (1.6-4.0cm) IVSd0.9 (0.7-1.1cm)Aortic Root(2D)2.8 (2.0-3.7cm) LVDd4.6 (3.9-5.9cm)LVOT Diameter1.8 (1.8-2.4cm) PWd0.8 (0.7-1.1cm)LVDs2.6 (2.5-4.0cm) FS (%) 43.3 %SV71.1 ml LVEF(%)74.5 (>50%) Aortic Valve AoV Peak Austin.200.1cm/sAoV VTI41.6cm AO Peak GR.16.0mmHgLVOT Peak Austin.159.9cm/s AO Mean GR.9mmHgAVA (VMAX)2.08cm2 Mitral Valve MV E Mamtaypq599.7cm/sMV DECEL CASF684ek MV A Pjvscqyz69.6cm/sE/A Ratio1.4 Pulmonary Valve PV Peak Kkudgccw763.9cm/s Tricuspid Valve TR P. Owqtxrsm736ys/sTR Peak Gr.37mmHg LEFT VENTRICLE The left ventricle is normal size. There is normal left ventricular wall thickness. The left ventricu lar systolic function is normal and the ejection fraction is within normal range. Estimated ejection fraction 60-65%. There is normal LV segmental wall motion. The left ventricular diastolic function an d filling is normal for age. RIGHT VENTRICLE The right ventricle is borderline dilated. The right ventricle is borderline hypertrophied. The right ventricular systolic function is normal. ATRIA The left atrium size is normal. The right atrium is borderline dilated. The interatrial septum is int act with no evidence for an atrial septal defect or patent foramen ovale as noted on 2-D or Doppler i maging. AORTIC VALVE The aortic valve is normal in structure and function. Doppler and Color Flow revealed no significant aortic regurgitation. There is no significant aortic valvular stenosis. MITRAL VALVE The mitral valve is normal in structure and function. There is no evidence of mitral valve prolapse. There is no mitral valve stenosis. Doppler and Color-flow revealed mild mitral regurgitation. TRICUSPID VALVE The tricuspid valve is normal in structure and function. Doppler and Color Flow revealed trace tricus pid regurgitation. Estimated PAP 35-40 mmHg. There is no tricuspid valve stenosis. PULMONIC VALVE Doppler and Color Flow revealed trace to mild pulmonic valvular regurgitation. There is no pulmonic v alvular stenosis. GREAT VESSELS The aortic root is normal in size. The ascending aorta is normal in size. The IVC is upper normal in size and collapses >50% with inspiration. PERICARDIAL EFFUSION There is no evidence of significant pericardial effusion. Critical Notification Critical Value: No <Conclusion> The left ventricular systolic function is normal and the ejection fraction is within normal range. E stimated ejection fraction 60-65%. There is normal LV segmental wall motion. Doppler and Color Flow revealed trace tricuspid regurgitation. Estimated PAP 35-40 mmHg. Signed by : Jono Martin, Electronically Approved : 01/11/2022 09:29:41
== END ==
LOC: ECHO 08:40
PROVIDERS: ATTEND Physician Assistant
DX: I34.0 Nonrheumatic mitral (valve) insufficiency (principal); I37.1 Nonrheumatic pulmonary valve insufficiency; I27.0 Primary pulmonary hypertension
CPT/HCPCS: 93306; C8929

== ENCOUNTER → 2022-03-28 | Outpatient (CLI) | payer OTHER ==
--- NOTE | 2022-03-28 17:09 | RAD ---
Bilateral digital screening 2-D and 3-D (digital breast tomosynthesis) mammogram: Reason for examination: Routine screening. Comparison: Mammograms from 07/30/2019 and 05/23/2018. Interpretation was made with the benefit of CAD. FINDINGS: Breast density: Category B. There are scattered areas of fibroglandular density. There is a spiculated mass in the 11:00 position retroareolar area approximately 3 cm posterior to th e nipple. The central portion which measures about 1.2 cm. Spicules extend close to the nipple. No ot her suspicious mass or area of architectural distortion is seen. No malignant appearing calcification s are identified. IMPRESSION: Spiculated mass in the 11:00 retroareolar region of the left breast. Further evaluation with targeted left breast ultrasound, including the axilla is recommended. Assessment: BI-RADS 0. Incomplete. Recommendation: Targeted left breast ultrasound. The patient will be contacted with results and asked to schedule for additional imaging. The patient will receive a letter with the results in the mail. Patient information will be entered into the mamm ography reminder system with a target recall date for the next mammogram. A reminder letter will be g enerated. Electronically signed by: Clara Mcwilliams MD (03/28/2022 5:06 PM) [id number]
== END ==
LOC: MAMMO 08:58
PROVIDERS: ATTEND Obstetrics & Gynecology
DX: Z12.31 Encounter for screening mammogram for malignant neoplasm of breast (principal)
CPT/HCPCS: 77063; 77067

== ENCOUNTER → 2022-04-01 | Outpatient (CLI) | payer OTHER ==
--- NOTE | 2022-04-01 13:24 | RAD ---
US BREAST LT History:Reason: CALLBACK / Spl. Instructions: / History: Comparison: Mammogram March 28, 2022 and July 30, 2019 Technique: Sonographic examination of the left breast was performed and multiple static images were obtained. Findings: Spiculated hypoechoic mass within the left breast 11:00 position measures 1.7 x 1.6 x 1.0 cm. Corresp onds with mammographic finding. There is a prominent vessel immediately adjacent to the mass. Impression: 1. Spiculated hypoechoic mass within the left breast. Recommend ultrasound-guided biopsy. Results were discussed with the patient. The patient agreed with the plan. Patient reports she is on blood thinners and will need to be off blood thinners for the biopsy. BI-RADS Category 5: Highly suggestive of malignancy. Electronically signed by: Mainor Vega DO (04/01/2022 1:21 PM) [id number]
== END ==
LOC: US 12:13
PROVIDERS: ATTEND Family Medicine
DX: N63.22 Unspecified lump in the left breast, upper inner quadrant (principal)
CPT/HCPCS: 76641